=== PATIENT | female | born 1980 | race Caucasian/White ===

== ENCOUNTER 2016-07-10 06:02 | Day surgery (SDC) | payer MEDICARE ==
[~2016-07-10 06:02] MED LIST: DIPRIVAN 200 MG/20 ML IV ONE; Ketamine HCl 50 MG/ML IJ ONE
[2016-07-10] MEDS ORDERED: Lactated Ringers 1,000 ML IV SCH (06:30)
[2016-07-10 07:53] VITALS: O2SAT 99
[2016-07-10 08:19] VITALS: BP 106/70; PULSE 72
--- NOTE | 2016-07-10 10:23 | OP ---
SURGERY DATE: 07/10/16 SURGERY TIME: 0700 PREOPERATIVE DIAGNOSIS: 1. EPIGASTRIC PAIN. POSTOPERATIVE DIAGNOSIS: 1. MODERATE GASTRITIS. PROCEDURE: 1. Esophagogastroduodenoscopy with biopsy. SURGEON: Dr. Lopez. ANESTHESIA: MAC, medications given by the Anesthesia Department. BRIEF HISTORY: The patient is a 36 y/o WF presenting now for endoscopic evaluation. She was appraised of the risks of the procedure including the risk of perforation, phlebitis, untoward reaction to medication, bleeding, and missed lesions. The patient verbalized her understanding and desired to have the procedure performed. DESCRIPTION OF PROCEDURE: The patient was placed in the left lateral decubitus position. A bite block was placed and the flexible Olympus gastroscope was used to intubate the oropharynx. A view of the larynx was obtained and was normal. The scope was easily introduced in the esophagus which was normal throughout its length. The stomach was entered where normal gastric rugal folds were seen and these distended nicely with the insufflation of air. The scope was passed along the greater curvature of the stomach to the antrum where there appeared to be some erythema, but no erosions or ulcerations. The pylorus was encountered and intubated. The duodenum was inspected and found to be normal. The scope was withdrawn towards the stomach. Again, a retroflex view was obtained of the lesser curvature, fundus, and cardia regions of the stomach and these appeared normal. The scope was then redirected towards the gastric antrum and biopsies were obtained to rule out the presence of Helicobacter pylori type organisms. The scope was then removed from the patient who tolerated the procedure well and was sent back to outpatient recovery in good condition.
== END 2016-07-10 08:15 | disposition home or self-care (01) ==
LOC: SDC 06:02
PROVIDERS: ATTEND Family Medicine
PROC: 0DB68ZX Excision of Stomach, Via Natural or Artificial Opening Endoscopic, Diagnostic (ICD-10-PCS; principal; 2016-07-10)
DX: K29.70 Gastritis, unspecified, without bleeding (principal); R12 Heartburn
CPT/HCPCS: 00740; 36415; 88305; J2704

== ENCOUNTER 2016-08-02 18:18 | Observation (INO) | payer MEDICARE ==
[2016-08-02 19:04] LABS: BASOPHIL % 0.3 % (0.0-0.4); Eosinophil % 1.5 % (0.00-5.0); Granulocytes % 56.1 % (36.0-66.0); Lymphocytes % 33.9 % (24.0-44.0); Mean Cell Volume 92.9 fl (78-100); Mean Corpuscular Hemoglobin 29.7 pg (26-32); Mean Platelet Volume 10.2 fl (6-9.5); Monocytes % 8.2 % (0.0-12.0); Platelet Count 322 K/mm3 (150-450); Red Blood Count 4.24 M/mm3 (4.1-5.4); Red Cell Distribution Width 13.3 % (11.5-14.0); White Blood Count 13.4 K/mm3 (4.0-10.5)
[2016-08-02 19:28] LABS: ALBUMIN 3.5 g/dL (3.4-5.0); ANION GAP 16.4 MEQ/L (5-15); BILIRUBIN,TOTAL 0.2 mg/dL (0.2-1.0); Carbon Dioxide 23.4 mEq/L (21-32); Potassium 3.9 mEq/L (3.5-5.1); Total Protein 6.9 gm/dL (6.4-8.2)
--- NOTE | 2016-08-02 19:40 | ERPHSYRPT ---
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 daiphoreiss with no n/v or sob. nitro x3 en route. pain to lt shoulder area a 3/10 at present. skin warm and dry Physician History: The patient is a 36-year-old female brought in by ambulance from home where she complained of a sudden onset of upper left chest pain that began while she was resting at 4 PM or about 4 hours ago. She states the pain was aching. When she stood up she was dizzy and short of breath. She denies nausea or vomiting. She was sweaty. EMS gave her 3 nitroglycerin which reduced the pain from an 8 out of 10 to a 3 out of 10. She has no prior history of [place] or coronary artery disease. She states that the pain is exacerbated with deep breathing. Her past history is significant for morbid obesity, noncardiac chest pain, anxiety, fibromyalgia, GERD, and hypothyroidism. She smokes about half a pack a cigarettes a day. There is no cardiac history in the family. Timing/Duration: hour(s) (4) Activities at Onset: rest Quality: sharpness Location: shoulder Chest Pain Radiation: no radiation Severity of Pain-Max: moderate Severity of Pain-Current: mild Modifying Factors: Improves With: breathing Associated Symptoms: shortness of breath, diaphoresis, No nausea, No vomiting Prior Chest Pain/Cardiac Workup: no prior chest pain Nitro Today/Relief: 0.4 mg x 3, provided by EMS, mild relief Aspirin Treatment Today: no aspirin today Allergies/Adverse Reactions: sumatriptan [From Imitrex] Adverse Reaction (Severe, Verified 08/02/16 18:25) heart spasms sumatriptan succinate [From Imitrex] Adverse Reaction (Severe, Verified 18:25) heart spasms aspirin Adverse Reaction (Intermediate, Verified 08/02/16 18:25) bleeding Home Medications: PANTOPRAZOLE 40 mg Tablet [Protonix 40MG Tablet] 40 mg PO BID 07/26/15 [ History] Hydrocodone Bit/Acetaminophen [[place] 7.5-325 Tablet] 1 tab PO QIDPRN PRN [History] Levothyroxine Sodium 150 Mcg [Synthroid 150 Mcg] 1 tab PO DAILY 07/09/16 [ History] Hx Tetanus, Diphtheria Vaccination/Date Given: Yes Hx Influenza Vaccination/Date Given: No Hx Pneumococcal Vaccination/Date Given: No Immunizations Up to Date: Yes - Review of Systems Constitutional: No Fever, No Chills Eyes: No Symptoms Ears, Nose, & Throat: No Symptoms Respiratory: Dyspnea on Exertion (HEATON) Cardiac: Chest Pain Abdominal/Gastrointestinal: No Abdominal Pain, No Nausea, No Vomiting, No Diarrhea Genitourinary Symptoms: No Dysuria Musculoskeletal: No Back Pain, No Neck Pain Skin: No Rash Neurological: No Dizziness, No Focal Weakness, No Sensory Changes Psychological: No Symptoms Endocrine: No Symptoms Hematologic/Lymphatic: No Symptoms Immunological/Allergic: No Symptoms All Other Systems: Reviewed and Negative - Past Medical History Pertinent Past Medical History: Yes Neurological History: No Pertinent History ENT History: No Pertinent History Cardiac History: No Pertinent History Respiratory History: Bronchitis Endocrine Medical History: Hypothyroidism Musculoskeletal History: No Pertinent History GI Medical History: GERD History: No Pertinent History Psycho-Social History: Anxiety, Bipolar Female Reproductive Disorders: No Pertinent History Other Medical History: Pt notes extensive surgical history of R knee. 6 scopes, ACL repair. Notes injured R knee at age 14. - Past Surgical History Past Surgical History: Yes Neuro Surgical History: No Pertinent History Cardiac: No Pertinent History Respiratory: No Pertinent History Gastrointestinal: Cholecystectomy Genitourinary: No Pertinent History Musculoskeletal: Orthopedic Surgery Female Surgical History: Hysterectomy, Section, Other Other Surgical History: breast reduction, total knee rt, partial knee rt, 8-9 arthroscopies rt knee, ACL repairs x3 rt knee, GB - Social History Smoking Status: Current every day smoker How long have you smoked: 22 years Exposure to second hand smoke: Yes Drug Use: none Patient Lives Alone: No - Female History Hx Now: No - Nursing Vital Signs Temperature: 97.6 F Temperature Source: Oral Pulse Rate: 86 Respiratory Rate: 18 Pain Intensity: 3 - Physical Exam General Appearance: no apparent distress, alert Eye Exam: PERRL/EOMI, eyes nml inspection Ears, Nose, Throat Exam: normal ENT inspection, moist mucous membranes Neck Exam: normal inspection, non-tender, supple, full range of motion Respiratory Exam: normal breath sounds, lungs clear, No respiratory distress Cardiovascular Exam: regular rate/rhythm, normal heart sounds Gastrointestinal/Abdomen Exam: soft, No tenderness, No mass Pelvic Exam: not done Rectal Exam: not done Back Exam: normal inspection Extremity Exam: normal inspection, normal range of motion Neurologic Exam: alert, oriented x 3, cooperative, normal mood/affect, sensation nml, No motor deficits Skin Exam: normal color, warm, dry SpO2 Interpretation: normal SpO2: 98 Oxygen Delivery: Room Air - Course EKG Interpreted by Me: RATE, Sinus Rhythm, NORMAL AXIS, NORMAL INTERVALS, NORMAL QRS, NORMAL ST-T, Other (No change compared to EKG 08/20/14.) - Radiology Exams Chest X-ray Interpretation: Interpreted by me, Negative (negative AP chest) Ordered Tests: Active Orders 24 hr Category Date Time Status Care Nurse Rn STAT Care 08/02/16 18:33 Active EKG-ER Only STAT Care 08/02/16 18:33 Active IV Insertion STAT Care 08/02/16 18:33 Active Orthostatic Vital Signs STAT Care 08/02/16 19:50 Active Pulse Oximetry (ED) STAT Care 08/02/16 18:33 Active CHEST 1 VIEW (PORTABLE) Stat Exams 08/02/16 18:33 Taken CBC W DIFF Stat Lab 08/02/16 19:01 Completed CMP Stat Lab 08/02/16 19:01 Completed TROPONIN Q3H Lab 08/02/16 19:02 Completed TROPONIN Q3H Lab 08/02/16 21:45 Ordered TROPONIN Q3H Lab 08/03/16 00:45 Ordered TROPONIN Q3H Lab 08/03/16 03:45 Ordered TROPONIN Q3H Lab 08/03/16 06:45 Ordered Medication Summary Discontinued Medications Generic Name Dose Route Start Last Admin Trade Name Freq PRN Reason Stop Dose Admin Sodium Chloride 1,000 mls @ 999 mls/hr 08/02/16 19:41 08/02/16 19:54 Sodium Chloride 0.9% 1000 Ml IV 08/02/16 20:41 999 mls/hr .Q1H1M STA Administration Sodium Chloride Confirm 08/02/16 19:52 Sodium Chloride 0.9% 1000 Ml Administered 08/02/16 19:53 Dose 1,000 mls @ ud .ROUTE .STK-MED ONE Ketorolac Tromethamine 30 mg 08/02/16 19:41 08/02/16 19:54 Toradol 30 Mg Injection IV 08/02/16 19:42 30 mg STAT ONE Administration Ketorolac Tromethamine Confirm 08/02/16 19:52 Toradol 30 Mg Injection Administered 08/02/16 19:53 Dose 30 mg .ROUTE .STK-MED ONE Lab/Rad Data: Laboratory Result Diagrams 08/02/16 19:01 08/02/16 19:01 Laboratory Results 08/02/16 08/02/16 08/02/16 Range/Units 19:02 19:01 19:01 WBC 13.4 H (4.0-10.5) K/mm3 RBC 4.24 (4.1-5.4) M/mm3 Hgb 12.6 (12.0-16.0) gm/dl Hct 39.4 (35-47) % MCV 92.9 (78-100) fl MCH 29.7 (26-32) pg MCHC 32.0 (32-36) g/dl RDW 13.3 (11.5-14.0) % Plt Count 322 (150-450) K/mm3 MPV 10.2 H (6-9.5) fl Gran % 56.1 (36.0-66.0) % Lymphocytes % 33.9 (24.0-44.0) % Monocytes % 8.2 (0.0-12.0) % Eosinophils % 1.5 (0.00-5.0) % Basophils % 0.3 (0.0-0.4) % Basophils # 0.04 (0-0.4) Sodium 144 (136-145) mEq/L Potassium 3.9 (3.5-5.1) mEq/L Chloride 108 H (98-107) mEq/L Carbon Dioxide 23.4 (21-32) mEq/L Anion Gap 16.4 H (5-15) MEQ/L BUN 11 (9-20) mg/dL Creatinine 1.10 (0.55-1.30) mg/dl Estimated GFR 59 ML/MIN Glucose 123 H (70-110) MG/DL Calcium 8.2 L (8.5-10.1) mg/dL Total Bilirubin 0.2 (0.2-1.0) mg/dL AST 15 (15-37) U/L ALT 9 L (12-78) U/L Alkaline Phosphatase 110 (46-116) U/L Troponin I < 0.017 (0.000-0.056) ng/ml Serum Total Protein 6.9 (6.4-8.2) gm/dL Albumin 3.5 (3.4-5.0) g/dL - Progress Progress: unchanged Air Movement: good Progress Note: 08/02/16 22:00 After Toradol 30 mg IV and normal saline 1 liter IV, the patient is not feeling any better. She now tells me that she has episodes of fluttering and discomfort in her left chest. She is quite tearful. She states her chest pain has not gotten any better. Blood Culture(s) Obtained: No Antibiotics given: No Discussed with : John (observation per Dr Lopez) Will see patient in: hospital (observation) Counseled pt/family regarding: lab results, diagnosis, rad results - Departure Time of Disposition: 22:00 Departure Disposition: Observation Clinical Impression: Chest pain Condition: Stable Critical Care Time: No
[2016-08-02] MEDS ORDERED: Sodium Chloride 0.9% 1000 ML 1,000 ML IV STA (19:41)
[2016-08-02] MEDS ORDERED: TORAdol 30 mg Injection IV ONE (19:41)
[2016-08-02] MEDS ORDERED: Sodium Chloride 0.9% 1000 ML 1,000 ML ONE (19:52)
[2016-08-02] MEDS ORDERED: TORAdol 30 mg Injection ONE (19:52)
[2016-08-02] MEDS ORDERED: MAALOX ES 30 ML UNIT DOSE PO PRN (22:38)
[2016-08-02] MEDS ORDERED: Zofran 4 MG/2 ML VIAL IV PRN (22:38)
[2016-08-02] MEDS ORDERED: MILK OF MAGNESIA 30 ML PO PRN (22:38)
[2016-08-02] MEDS ORDERED: TYLENOL 325 MG PO PRN (22:38)
[2016-08-02] MEDS ORDERED: Senokot-S Tablet PO PRN (22:38)
[2016-08-03 07:13] VITALS: BP 105/59; PULSE 66; O2SAT 97
--- NOTE | 2016-08-03 08:32 | PCM.DCORD ---
- Discharge Discharge Date: 08/03/16 Disposition: Home, Self-Care Condition: Stable Prescriptions: New Hydrocodone Bit/Acetaminophen [[place] 7.5-325 Tablet] 1 each PO QIDPRN PRN # 30 tablet PRN Reason: Pain Continue PANTOPRAZOLE 40 mg Tablet [Protonix 40MG Tablet] 40 mg PO BID Levothyroxine Sodium 150 Mcg [Synthroid 150 Mcg] 1 tab PO DAILY Hydrocodone Bit/Acetaminophen [[place] 7.5-325 Tablet] 1 tab PO QIDPRN PRN PRN Reason: Pain Additional Instructions: You do not need to see Dr. Lopez today in the office. You have seen him today in the hospital. Please drink lots of fluids and use the volttren gel on your chest. Follow up with Dr. Lopez in the office in one week. Take your home medications as prescribed and if you are having a medical emergency please go to the er. Follow up with: GUILLE LOPEZ [Primary Care Provider] -
--- NOTE | 2016-08-03 08:32 | XRAY ---
Indication: Chest pain and flutter. Comparison: August 20, 2014. Portable chest demonstrates stable left upper lung calcified granuloma. Remaining heart, lungs, and bony thorax normal.
[2016-08-03] MEDS ORDERED: Ecotrin 325 MG PO SCH (10:00)
[2016-08-03] MEDS ORDERED: PNEUMOVAX 23 IM ONE (10:00)
[2016-08-03] MEDS ORDERED: FLUZONE QUAD 2016-2017 SYRINGE 36MO-64YO IM ONE (10:00)
--- NOTE | 2016-08-03 12:56 | SSS ---
DISCHARGE DIAGNOSIS: CHEST WALL PAIN. HISTORY OF PRESENT ILLNESS: The patient is a 36 year-old white female who presented to the emergency room with complaints of sudden onset of chest pain. She reports the pain was worse with inspiration in particular the left sternal border. She was seen in the emergency room and given Nitro with some relief. The patient continued to have pain however and was crying and was felt the need to be admitted to the hospital to rule out myocardial infarction. PAST MEDICAL/SURGICAL HISTORY: Morbid obesity, fibromyalgia, anxiety, depression, chronic pain syndrome, hypothyroidism. HOME MEDICATIONS: Pantoprazole 40 mg a day, [place] 7.5/325 mg four times a day for pain, Synthroid 150 mcg daily. ALLERGIES: IMITREX. SOCIAL HISTORY: The patient is a smoker. PHYSICAL EXAMINATION: Revealed a morbidly obese white female in no distress. Vital signs on admission showed temperature 97.6F oral, pulse 86, and respiratory rate 18. The patient's blood pressure is noted to be 124/72. HEENT: Normocephalic, atraumatic. Pupils equal round reactive to light. Extraocular movements intact. Oropharynx is pink and moist. NECK: Supple without lymphadenopathy, thyromegaly or JVD. CHEST: Clear to auscultation with good air movement bilaterally. The chest is exquisitely tender to palpation in the second and third rib area at its attachment to the sternum. HEART: Regular rate and rhythm without murmurs, rubs or gallops. ABDOMEN: Soft, nontender, nondistended without hepatosplenomegaly or masses. EXTREMITIES: Without clubbing, cyanosis or edema. NEUROLOGIC: The patient is alert and oriented x3. LAB DATA AND TESTS: Troponins measured several times were all less than 0.017. Her white blood cell count was slightly elevated at 13,400, hemoglobin 12.6, PLT count 322,000. There appeared to be no left shift. The metabolic panel showed nonfasting glucose of 123, BUN 11, creatinine 1.10. Electrolytes were normal. Liver enzymes were normal. The patient had EKG which was essentially normal as well. ASSESSMENT: A patient with chest wall pain having ruled out for myocardial infarction. The patient was sent home with instructions to follow up in the office in one week. She was given a prescription for [place] as requested at 7.5/325 mg #30. She also has Voltaren gel at home to use which she has been using in the occipital area for headaches. We will ask her to also use now in the left sternal border as well for pain control.
== END 2016-08-03 10:45 | disposition home or self-care (01) ==
LOC: ED 18:18 → MED SURG 22:24
PROVIDERS: ADMIT Family Medicine; ATTEND Family Medicine
DX: R07.89 Other chest pain (principal); E66.01 Morbid (severe) obesity due to excess calories; M79.7 Fibromyalgia; F41.8 Other specified anxiety disorders; G89.4 Chronic pain syndrome; E03.9 Hypothyroidism, unspecified; K21.9 Gastro-esophageal reflux disease without esophagitis; Z79.899 Other long term (current) drug therapy; Z72.0 Tobacco use; Z23 Encounter for immunization
CPT/HCPCS: 36000; 36415; 71010; 80053; 80061; 83721; 84484; 85025; 90686; 90732; 93005; 93041; 93268; 94760; 96360; 96374; 99285; G0008; G0009; G0378; J1885; A9270-GY

== ENCOUNTER 2016-12-27 18:10 | Observation (INO) | payer MEDICARE ==
[2016-12-27] MEDS ORDERED: Zofran 4 MG/2 ML VIAL IV ONE (18:33)
[2016-12-27] MEDS ORDERED: Nitrostat 0.4 MG (ED) SL ONE ×2 (18:33→18:47)
--- NOTE | 2016-12-27 18:44 | ERPHSYRPT ---
- History of Present Illness Time Seen by Provider: 12/27/16 18:25 Historian: patient Exam Limitations: clinical condition Patient Subjective Stated Complaint: PT REPORTS CHEST PAIN BEGINNING HERO 1 HR AGO-DENIES SOB BUT REPORTS DIAPHORESIS-REPORTS BILATERAL LEG SWELLING WORSENING DURING THE WEEK Triage Nursing Assessment: PT PINK WARM ET [id number] EASY ET NONLABORED AT THIS TIME-SPEAKING IN COMPLETE SENTENCES WITH EASE Physician History: PATIENT WITH A HISTORY OR ATRIAL FIBRILLATION, HYPERTENSION, CORONARY ARTERY DISEASE COMPLAINS OF ACUTE ONSET SUBSTERNAL CHEST PAIN 1 HOUR PRIOR TO ARRIVAL ASSOCIATED WITH DIAPHORESIS, DENIES RADIATION OF PAIN TO NECK, JAW OR BACK OR PALPITATIONS. STATES PAIN SCALE 5/10. PATIENT HAS A CARDIAC CATHERIZATION SEPTEMBER 2015. Timing/Duration: today Activities at Onset: none Quality: pressure Location: substernal Chest Pain Radiation: no radiation Severity of Pain-Max: moderate Severity of Pain-Current: moderate Modifying Factors: Improves With: nothing Associated Symptoms: nausea, diaphoresis Prior Chest Pain/Cardiac Workup: cardiac cath Nitro Today/Relief: 0.4 mg x 1, provided by ED Aspirin Treatment Today: no aspirin today Allergies/Adverse Reactions: sumatriptan [From Imitrex] Allergy (Severe, Verified 12/27/16 18:30) heart spasms sumatriptan succinate [From Imitrex] Allergy (Severe, Verified 12/27/16 18:30) heart spasms aspirin Allergy (Intermediate, Verified 12/27/16 18:30) bleeding Home Medications: Levothyroxine Sodium 150 Mcg [Synthroid 150 Mcg] 1 tab PO DAILY 07/09/16 [ History] Apixaban [Eliquis] 5 mg PO BID 12/08/16 [History] Furosemide 20 mg [Lasix 20 mg] 20 mg PO DAILY 12/08/16 [History] Amlodipine Besylate [Norvasc] 2.5 mg PO DAILY 12/27/16 [History] Clonazepam 0.5 mg [Klonopin 0.5 MG] 0.5 mg PO BID PRN 12/27/16 [History] Gabapentin [Neurontin] 300 mg PO HS 12/27/16 [History] Omeprazole 20 MG [Prilosec 20 mg] 20 mg PO DAILY 12/27/16 [History] Hx Tetanus, Diphtheria Vaccination/Date Given: Yes Hx Influenza Vaccination/Date Given: No Hx Pneumococcal Vaccination/Date Given: No Immunizations Up to Date: Yes - Review of Systems Constitutional: No Fever, No Chills Eyes: No Symptoms Ears, Nose, & Throat: No Symptoms Respiratory: No Symptoms, No Cough, No Dyspnea Cardiac: Chest Pain, Edema, Other (DIAPHORESIS), No Syncope Abdominal/Gastrointestinal: Nausea, No Abdominal Pain, No Vomiting, No Diarrhea Genitourinary Symptoms: No Symptoms, No Dysuria Musculoskeletal: No Symptoms, No Back Pain, No Neck Pain Skin: No Rash Neurological: No Dizziness, No Focal Weakness, No Sensory Changes Psychological: No Symptoms Endocrine: No Symptoms All Other Systems: Reviewed and Negative - Past Medical History Pertinent Past Medical History: Yes Neurological History: Migraines ENT History: No Pertinent History Cardiac History: Arrhythmia, Hypertension Respiratory History: Bronchitis Endocrine Medical History: Diabetes Type II, Hypothyroidism Musculoskeletal History: Arthritis, Fibromyalgia GI Medical History: GERD History: No Pertinent History Psycho-Social History: Anxiety, Bipolar Female Reproductive Disorders: No Pertinent History Other Medical History: Pt notes extensive surgical history of R knee. 6 scopes, ACL repair. Notes injured R knee at age 14. - Past Surgical History Past Surgical History: Yes Neuro Surgical History: No Pertinent History Cardiac: No Pertinent History Respiratory: No Pertinent History Gastrointestinal: Cholecystectomy Genitourinary: No Pertinent History Musculoskeletal: Orthopedic Surgery Female Surgical History: Hysterectomy, Section, Other Other Surgical History: breast reduction, total knee rt, partial knee rt, 8-9 arthroscopies rt knee, ACL repairs x3 rt knee, GB, thyroidectomy - Social History Smoking Status: Current every day smoker How long have you smoked: 22 years Exposure to second hand smoke: Yes Drug Use: none Patient Lives Alone: No - Female History Hx Now: No - Nursing Vital Signs Nursing Vital Signs: Initial Vital Signs Temperature 97.8 F 12/27/16 18:15 Pulse Rate 84 12/27/16 18:15 Respiratory Rate 18 12/27/16 18:15 Blood Pressure 132/63 12/27/16 18:15 O2 Sat by Pulse Oximetry 96 12/27/16 18:15 Pain Scale Pain Intensity 1 - Physical Exam General Appearance: no apparent distress, alert Eye Exam: PERRL/EOMI, eyes nml inspection Ears, Nose, Throat Exam: normal ENT inspection, moist mucous membranes Neck Exam: normal inspection, non-tender, supple, full range of motion Respiratory Exam: normal breath sounds, lungs clear, No respiratory distress Cardiovascular Exam: regular rate/rhythm, normal heart sounds Gastrointestinal/Abdomen Exam: soft, normal bowel sounds (OBESE), No tenderness , No mass Back Exam: normal inspection, No CVA tenderness, No vertebral tenderness Extremity Exam: normal inspection, normal range of motion, pedal edema (+1 PITTING EDEMA) Neurologic Exam: alert, oriented x 3, cooperative, normal mood/affect, sensation nml, No motor deficits Skin Exam: normal color, warm, dry SpO2 Interpretation: normal SpO2: 96 Oxygen Delivery: Room Air - Course EKG Interpreted by Me: RATE, Sinus Rhythm (RATEE 85), NORMAL AXIS, Non-specific ST Changes - Radiology Exams Chest X-ray Interpretation: Interpreted by me, Negative Ordered Tests: Active Orders 24 hr Category Date Time Status Bedrest with BRP/BSC ROUTINE Activity 12/27/16 20:25 Ordered Admission/Status Order ROUTINE Care 12/27/16 20:25 Ordered Call Admit Doctor for Orders ROUTINE Care 12/27/16 20:25 Ordered Clean Catch Urine Specimen STAT Care 12/27/16 18:38 Active Code Status Order ROUTINE Care 12/27/16 20:25 Ordered EKG-ER Only STAT Care 12/27/16 18:33 Active IV Care Q6H Care 12/27/16 20:25 Ordered Implement Chest Pain Pathway ROUTINE Care 12/27/16 20:25 Ordered Oxygen-ED Only NASAL CANNULA 2 lpm Care 12/27/16 18:33 Active Rene Garcia ROUTINE Care 12/27/16 20:25 Ordered Telemetry ROUTINE Care 12/27/16 20:25 Ordered Vital Signs Q4H Care 12/27/16 20:25 Ordered Weight,Daily 0600 Care 12/27/16 20:25 Ordered Cardiac Diet Diet 12/27/16 Breakfast Ordered CHEST 2 VIEWS (PA AND LAT) Stat Exams 12/27/16 18:35 Completed CBC W DIFF Stat Lab 12/27/16 18:30 Completed CMP Stat Lab 12/27/16 18:30 Completed HCG,QUALITATIVE URINE Stat Lab 12/27/16 19:00 Completed LIPID PROFILE AM.LAB Lab 12/28/16 04:00 Ordered NT PRO BNP Stat Lab 12/27/16 18:30 Completed PROTIME WITH INR Stat Lab 12/27/16 18:30 Completed TROPONIN Q3H Lab 12/27/16 18:30 Completed TROPONIN Q3H Lab 12/27/16 21:45 Ordered TROPONIN Q3H Lab 12/28/16 00:45 Ordered TROPONIN Q3H Lab 12/28/16 03:45 Ordered TROPONIN Q3H Lab 12/28/16 06:45 Ordered UA Stat Lab 12/27/16 19:00 Completed EKG Q8HX2,QAMX3,PRN RT 12/27/16 20:25 Ordered Pulse Oximetry .continuos RT 12/27/16 20:25 Ordered Transfer Order Routine Transfer 12/27/16 Ordered Medication Summary Generic Name Dose Route Start Last Admin Trade Name Freq PRN Reason Stop Dose Admin Acetaminophen 650 mg 12/27/16 20:25 Tylenol 325 Mg PO 01/26/17 20:24 Q4H PRN PRN PAIN AND/OR FEVER Amlodipine Besylate 2.5 mg 12/27/16 21:00 Norvasc 5 Mg PO 01/26/17 20:59 QAM KEVIN Apixaban 5 mg 12/27/16 22:00 Eliquis PO 01/26/17 21:59 BID KEVIN Aspirin 325 mg 12/28/16 10:00 Ecotrin 325 Mg PO 01/27/17 09:59 DAILY KEVIN Clonazepam 0.5 mg 12/27/16 20:30 Klonopin 0.5 Mg PO 01/26/17 20:29 BID KEVIN Famotidine 20 mg 12/27/16 22:00 Pepcid 20 Mg PO 01/26/17 21:59 BID KEVIN Furosemide 40 mg 12/27/16 20:30 Lasix 40 Mg PO 01/26/17 20:29 DAILY KEVIN Sodium Chloride 1,000 mls @ 50 mls/hr 12/27/16 18:45 12/27/16 18:48 Sodium Chloride 0.9% 1000 Ml IV 01/26/17 18:44 50 mls/hr .Q20H KEVIN Administration Discontinued Medications Generic Name Dose Route Start Last Admin Trade Name Freq PRN Reason Stop Dose Admin Morphine Sulfate 4 mg 12/27/16 20:17 12/27/16 20:23 Morphine Sulfate 4 Mg Inj IV 12/27/16 20:18 4 mg STAT ONE Administration Morphine Sulfate Confirm 12/27/16 20:22 Morphine Sulfate 4 Mg Inj Administered 12/27/16 20:23 Dose 4 mg .ROUTE .STK-MED ONE Nitroglycerin 0.4 mg 12/27/16 18:33 12/27/16 18:47 Nitrostat 0.4 Mg (Ed) SL 12/27/16 18:34 0.4 mg STAT ONE Administration Nitroglycerin Confirm 12/27/16 18:47 Nitrostat 0.4 Mg (Ed) Administered 12/27/16 18:48 Dose 0.4 mg SL .STK-MED ONE Nitroglycerin 1 gm 12/27/16 19:46 12/27/16 19:57 Nitro-Bid 2% Ud Packets TOP 12/27/16 19:47 1 gm STAT ONE Administration Nitroglycerin Confirm 12/27/16 19:57 Nitro-Bid 2% Ud Packets Administered 12/27/16 19:58 Dose 1 gm .ROUTE .STK-MED ONE Ondansetron HCl 4 mg 12/27/16 18:33 12/27/16 18:48 Zofran 4 Mg/2 Ml Vial IV 12/27/16 18:34 4 mg STAT ONE Administration Ondansetron HCl Confirm 12/27/16 18:47 Zofran 4 Mg/2 Ml Vial Administered 12/27/16 18:48 Dose 4 mg .ROUTE .STK-MED ONE Lab/Rad Data: Laboratory Result Diagrams 12/27/16 18:30 12/27/16 18:30 Laboratory Results 12/27/16 12/27/16 12/27/16 Range/Units 19:00 19:00 18:30 WBC (4.0-10.5) K/mm3 RBC (4.1-5.4) M/mm3 Hgb (12.0-16.0) gm/dl Hct (35-47) % MCV (78-100) fl MCH (26-32) pg MCHC (32-36) g/dl RDW (11.5-14.0) % Plt Count (150-450) K/mm3 MPV (6-9.5) fl Gran % (36.0-66.0) % Lymphocytes % (24.0-44.0) % Monocytes % (0.0-12.0) % Eosinophils % (0.00-5.0) % Basophils % (0.0-0.4) % Basophils # (0-0.4) INR (0.8-3.0) Sodium (136-145) mEq/L Potassium (3.5-5.1) mEq/L Chloride (98-107) mEq/L Carbon Dioxide (21-32) mEq/L Anion Gap (5-15) MEQ/L BUN (9-20) mg/dL Creatinine (0.55-1.30) mg/dl Estimated GFR ML/MIN Glucose (70-110) MG/DL Calcium (8.5-10.1) mg/dL Total Bilirubin (0.2-1.0) mg/dL AST (15-37) U/L ALT (12-78) U/L Alkaline Phosphatase (46-116) U/L Troponin I < 0.017 (0.000-0.056) ng/ml NT-Pro-B Natriuret Pep (0-125) pg/ml Serum Total Protein (6.4-8.2) gm/dL Albumin (3.4-5.0) g/dL Ur Collection Type CLEAN CATCH Urine Color YELLOW (YELLOW) Urine Appearance CLEAR (CLEAR) Urine pH 5.0 (5-6) Ur Specific [place] 1.010 (1.005-1.025) Urine Protein NEGATIVE (Negative) Urine Ketones NEGATIVE (NEGATIVE) Urine Blood NEGATIVE (0-5) Jose/ul Urine Nitrite NEGATIVE (NEGATIVE) Urine Bilirubin NEGATIVE (NEGATIVE) Urine Urobilinogen NORMAL (0-1) mg/dL Ur Leukocyte Esterase NEGATIVE (NEGATIVE) Urine Glucose NEGATIVE (NEGATIVE) mg/dL Urine HCG, Qual NEGATIVE (Negative) Specimen Received 12/27/16:1900 12/27/16 12/27/16 12/27/16 Range/Units 18:30 18:30 18:30 WBC 16.6 H (4.0-10.5) K/mm3 RBC 4.32 (4.1-5.4) M/mm3 Hgb 12.7 (12.0-16.0) gm/dl Hct 39.9 (35-47) % MCV 92.4 (78-100) fl MCH 29.4 (26-32) pg MCHC 31.8 L (32-36) g/dl RDW 14.1 H (11.5-14.0) % Plt Count 373 (150-450) K/mm3 MPV 10.6 H (6-9.5) fl Gran % 68.0 H (36.0-66.0) % Lymphocytes % 24.7 (24.0-44.0) % Monocytes % 5.6 (0.0-12.0) % Eosinophils % 1.4 (0.00-5.0) % Basophils % 0.3 (0.0-0.4) % Basophils # 0.05 (0-0.4) INR 1.07 (0.8-3.0) Sodium 141 (136-145) mEq/L Potassium 3.5 (3.5-5.1) mEq/L Chloride 104 (98-107) mEq/L Carbon Dioxide 26.3 (21-32) mEq/L Anion Gap 14.1 (5-15) MEQ/L BUN 12 (9-20) mg/dL Creatinine 1.08 (0.55-1.30) mg/dl Estimated GFR > 60 ML/MIN Glucose 137 H (70-110) MG/DL Calcium 9.2 (8.5-10.1) mg/dL Total Bilirubin 0.20 (0.2-1.0) mg/dL AST 17 (15-37) U/L ALT 21 (12-78) U/L Alkaline Phosphatase 120 H (46-116) U/L Troponin I (0.000-0.056) ng/ml NT-Pro-B Natriuret Pep 94 (0-125) pg/ml Serum Total Protein 7.6 (6.4-8.2) gm/dL Albumin 3.5 (3.4-5.0) g/dL Ur Collection Type Urine Color (YELLOW) Urine Appearance (CLEAR) Urine pH (5-6) Ur Specific [place] (1.005-1.025) Urine Protein (Negative) Urine Ketones (NEGATIVE) Urine Blood (0-5) Jose/ul Urine Nitrite (NEGATIVE) Urine Bilirubin (NEGATIVE) Urine Urobilinogen (0-1) mg/dL Ur Leukocyte Esterase (NEGATIVE) Urine Glucose (NEGATIVE) mg/dL Urine HCG, Qual (Negative) Specimen Received - Progress Progress: improved Progress Note: 12/27/16 20:21 PATIENT PAIN IMPROVED NTG 0.4MG SL X2, NITROPASTE 1" ACW, ZOFRAN 4MG, MORPHINE 4MG IV Discussed with .: Davian (NOTIFIED OF ADMISSION), Other (CONSULTED DATABASE TECHNICIAN DR ALCARAZ AT 1945, FOR ADMISSION TO [place], DR PILLAI NOTIFIED OF ADMISSION) - Departure Time of Disposition: 20:30 Departure Disposition: Observation Clinical Impression: ACUTE CHEST PAIN Condition: Stable Critical Care Time: No Referrals: GUILLE WEBB [Primary Care Provider] -
[2016-12-27] MEDS ORDERED: Sodium Chloride 0.9% 1000 ML 1,000 ML IV SCH (18:45)
[2016-12-27] MEDS ORDERED: Zofran 4 MG/2 ML VIAL ONE (18:47)
[2016-12-27 18:52] LABS: BASOPHIL % 0.3 % (0.0-0.4); Eosinophil % 1.4 % (0.00-5.0); Lymphocytes % 24.7 % (24.0-44.0); Mean Cell Volume 92.4 fl (78-100); Mean Corpuscular Hemoglobin 29.4 pg (26-32); Mean Platelet Volume 10.6 fl (6-9.5); Monocytes % 5.6 % (0.0-12.0); Platelet Count 373 K/mm3 (150-450); Red Blood Count 4.32 M/mm3 (4.1-5.4); Red Cell Distribution Width 14.1 % (11.5-14.0); White Blood Count 16.6 K/mm3 (4.0-10.5)
--- NOTE | 2016-12-27 19:14 | XRAY ---
Indication: Dyspnea. Comparison: August 02, 2016. PA/lateral chest again demonstrates normal heart, lungs, and bony thorax with incidental calcified granulomas.
[2016-12-27 19:21] LABS: Bilirubin NEGATIVE (NEGATIVE); Blood NEGATIVE Ery/ul (0-5); COMPLETE URINE MICROSCOPIC? NO; Collection Type CLEAN CATCH; Glucose NEGATIVE (NEGATIVE); Leukocyte Esterase NEGATIVE (NEGATIVE)
[2016-12-27 19:21] LABS: INR 1.07 (0.8-3.0); PROTIME 12.1 SECONDS (9.95-12.35)
[2016-12-27 19:35] LABS: ALBUMIN 3.5 g/dL (3.4-5.0); ALKALINE PHOSPHATASE 120 U/L (46-116); ANION GAP 14.1 MEQ/L (5-15); BLOOD UREA NITROGEN 12 mg/dL (9-20); CHLORIDE 104 mEq/L (98-107); Carbon Dioxide 26.3 mEq/L (21-32); Glucose 137 MG/DL (70-110); Potassium 3.5 mEq/L (3.5-5.1); SGOT/AST 17 U/L (15-37); SGPT/ALT 21 U/L (12-78); SODIUM 141 mEq/L (136-145); Total Protein 7.6 gm/dL (6.4-8.2)
[2016-12-27] MEDS ORDERED: NITRO-BID 2% UD PACKETS TOP ONE (19:46)
[2016-12-27] MEDS ORDERED: NITRO-BID 2% UD PACKETS ONE (19:57)
[2016-12-27] MEDS ORDERED: MORPHINE SULFATE 4 MG INJ IV ONE (20:17)
[2016-12-27] MEDS ORDERED: MORPHINE SULFATE 4 MG INJ ONE (20:22)
[2016-12-27] MEDS ORDERED: TYLENOL 325 MG PO PRN (20:25)
[2016-12-27] MEDS ORDERED: MORPHINE SULFATE 2 MG INJ IV PRN (20:25)
[2016-12-27] MEDS ORDERED: MAALOX ES 30 ML UNIT DOSE PO PRN (20:25)
[2016-12-27] MEDS ORDERED: Zofran 4 MG/2 ML VIAL IV PRN (20:25)
[2016-12-27] MEDS ORDERED: Senokot-S Tablet PO PRN (20:25)
[2016-12-27] MEDS ORDERED: Lasix 40 MG PO SCH (20:30)
[2016-12-27] MEDS ORDERED: Sodium Chloride 0.9% 500 ML 500 ML IV SCH (20:30)
[2016-12-27] MEDS ORDERED: NORCO 7.5/325 MG TAB PO PRN (22:45)
[2016-12-27] MEDS: NORVASC 5 MG PO SCH (22:47)
[2016-12-27] MEDS: ELIQUIS PO SCH (22:54)
[2016-12-27] MEDS: Pepcid 20 MG PO SCH (22:54)
[2016-12-27] MEDS: Klonopin 0.5 MG PO SCH ×2 (22:54→23:04)
[2016-12-27] MEDS ORDERED: NEURONTIN 300 MG PO ONE (23:00)
[2016-12-28] MEDS ORDERED: SUBLIMAZE 100 MCG/2 ML ONE (04:08)
[2016-12-28] MEDS ORDERED: SUBLIMAZE 100 MCG/2 ML IV ONE (04:12)
[2016-12-28 07:54] VITALS: BP 104/53; PULSE 74; O2SAT 93
--- NOTE | 2016-12-28 08:49 | HP ---
CHIEF COMPLAINT: Chest pain. HISTORY OF PRESENT ILLNESS: The patient is a 36 year-old white female who reports that approximately 1600 hours in the afternoon she began having some chest discomfort. She became concerned as the pain was intermittent. She presented herself to the emergency room. She does have a history of atrial fibrillation. She sees Dr. Bone for her cardiac issues. She has not had any coronary artery occlusion problems she reports. PAST MEDICAL/SURGICAL HISTORY: Her history is otherwise significant for anxiety, depression and childbirth. She has hypothyroidism, gastroesophageal reflux disease and hypertension. HOME MEDICATIONS: Amlodipine 2.5 mg daily, Eliquis 5 mg b.i.d., Klonopin 0.5 mg b.i.d. PRN anxiety, Lasix 20 mg a day, Neurontin 300 mg at night for sleep, [place] 7.5/325 every four hours PRN pain, levothyroxine 150 mcg daily, omeprazole 20 mg a day. ALLERGIES: SUMATRIPTAN, ASPIRIN. REVIEW OF SYSTEMS: The patient did complain of some left posterior calf area tenderness in the left leg. PHYSICAL EXAMINATION: Revealed an obese, white female currently in no obvious distress. Her vital signs showed temperature 97.8F, blood pressure 132/86, heart rate 76 and regular presently. HEENT: Normocephalic, atraumatic. Pupils equal round reactive to light. Extraocular movements intact. Oropharynx is pink and moist. NECK: Supple without lymphadenopathy, thyromegaly or JVD. CHEST: Clear to auscultation with good air movement bilaterally. It is tender to palpation over the left sternal border with pressure applied. HEART: No murmurs, rubs or gallops heard. She is currently in what appears to be a sinus rhythm. ABDOMEN: Soft, nontender, nondistended without hepatosplenomegaly or masses. EXTREMITIES: Without clubbing, cyanosis or edema. NEUROLOGIC: The patient is alert and oriented x3. LAB DATA AND TESTS: Laboratory studies from the emergency room revealed troponin to be less than 0.017. D-dimer was negative. We are pending a venous Doppler of the left lower extremity to rule out deep venous thrombosis. Her lipid panel was good with LDL cholesterol of 89 and HDL of 37. International normalized ratio 1.07. Metabolic panel showed a nonfasting glucose of 137, BUN 12, creatinine 1.08. Liver enzymes and electrolytes were normal. ProBNP level was 94. UA was normal. ASSESSMENT: A patient with chest pain likely to be due to chest wall inflammation with the pain at the left sternal border. She has no history of coronary artery disease to my knowledge. We will rule out for deep venous thrombosis of the left lower extremity. If this is negative, she will be discharged home on her usual medications. She reports she has an appointment to see a diesel powerplant mechanic later this afternoon.
[2016-12-28] MEDS ORDERED: Klonopin 0.5 MG PO PRN (09:26)
--- NOTE | 2016-12-28 09:28 | XRAY ---
Indication: Left leg pain and swelling. Two-dimensional sonogram and color Doppler imaging of the major venous vessels of the left leg was performed. Comparison: July 21, 2012. Again no thrombus seen in the examined deep venous vessels of the left leg including greater saphenous vein. Veins demonstrate normal compressibility. Venous waveforms are normal with and without augmentation. Impression: Left leg again negative for DVT.
[2016-12-28] MEDS ORDERED: Protonix 40MG Tablet PO SCH (10:00)
[2016-12-28] MEDS ORDERED: SYNTHROID 150 MCG PO SCH (10:00)
[2016-12-28] MEDS ORDERED: NON-FORMULARY ITEM (Omeprazole 20 Mg [Prilosec 20 Mg] 20 MG) PO SCH (10:00)
[2016-12-28] MEDS ORDERED: LASIX 20 MG PO SCH (10:00)
[2016-12-28] MEDS ORDERED: Ecotrin 325 MG PO SCH (10:00)
[2016-12-28] MEDS: NORVASC 5 MG PO SCH (10:09)
[2016-12-28] MEDS: ELIQUIS PO SCH (10:10)
[2016-12-28] MEDS: Pepcid 20 MG PO SCH (10:11)
[2016-12-28] MEDS ORDERED: NEURONTIN 300 MG PO SCH (22:00)
== END 2016-12-28 10:25 | disposition home or self-care (01) ==
LOC: ED 18:10 → MED SURG 20:40
PROVIDERS: ADMIT Family Medicine; ATTEND Family Medicine
DX: R07.89 Other chest pain (principal); I48.91 Unspecified atrial fibrillation; Z79.01 Long term (current) use of anticoagulants; F41.8 Other specified anxiety disorders; E03.9 Hypothyroidism, unspecified; M79.605 Pain in left leg; M79.89 Other specified soft tissue disorders; K21.9 Gastro-esophageal reflux disease without esophagitis; I10 Essential (primary) hypertension; Z79.899 Other long term (current) drug therapy
CPT/HCPCS: 36000; 36415; 71020; 80053; 80061; 81002; 83721; 83880; 84484; 84703; 85025; 85379; 85610; 93005; 93041; 93268; 93971; 94660; 94760; 96360; 96361; 96374; 96375; 99285; G0378; J2270; J2405; J3010; A9270-GY

== ENCOUNTER 2017-04-05 17:05 | Emergency (ER) | payer MEDICARE ==
[2017-04-05] MEDS ORDERED: Sodium Chloride 0.9% 1000 ML 1,000 ML IV STA ×2 (17:29→19:20)
[2017-04-05] MEDS ORDERED: Sodium Chloride 0.9% 1000 ML 1,000 ML ONE ×2 (17:35→19:25)
--- NOTE | 2017-04-05 17:37 | ERPHSYRPT ---
- History of Present Illness Source: patient Exam Limitations: no limitations Patient Subjective Stated Complaint: PT STATES SHE WAS STANDING AT THE KITCHEN COUNTER APPROX 1620 TALKING WITH HER DAUGHTER WHEN SHE STARTED TO FEEL DIZZY AND SWEAT. REPORTS SHE FELL BACK STRIKING HER HEAD ON THE WALL. REPORTS WHEN SHE CAME AROUND SHE WAS ON THE FLOOR AND HER HEAD WAS HURTING. REPORT OF KNEE SURGERY APPROX 4 WKS AGO. STATES SHE JUST STARTED HER SECOND ROUND OF AUGMENTIN TODAY FOR AN INFECTION TO THE KNEE. REPORTS HAVING DIARRHEA ALL DAY TODAY WELL CHILLS. Triage Nursing Assessment: PT IS AOX3, PUPILS PERRL, RESPS ARE EASY AND NON LABORED, LUNG SOUNDS CLEAR THROUGHOUT ALL HADLEY, RADIAL PULSES ARE STRONG AND EQUAL, ABD IS SOFT AND NON TENDER, BOWEL SOUNDS ARE PRESENT AND NORMOACTIVEX4. SKIN IS PALE WARM AND DRY. ROM IS NORMAL, SENSATION INTACT TO UPPER AND LOWER EXTREMITIES. Timing/Duration: today (just prior to arrival) Severity: moderate Modifying Factors: Worsens With: eating, immobilization, medication, movement, rest, acetaminophen, ibuprofen, nothing Associated Symptoms: diaphoresis, headaches, syncope, seizure (questionable seizure), No nausea, No vomiting, No abdominal pain, No shortness of breath, No heartburn, No cough, No chest pain, No fever, No loss of appetite, No malaise, No rash, No weakness Hx Tetanus, Diphtheria Vaccination/Date Given: Yes Hx Influenza Vaccination/Date Given: Yes Hx Pneumococcal Vaccination/Date Given: Yes Immunizations Up to Date: Yes <SAHARA JONES - Last Filed: 04/05/17 19:27> <AYAD MCNULTY - Last Filed: 04/05/17 22:19> - History of Present Illness Time Seen by Provider: 04/05/17 17:26 Physician History: Is a 37-year-old morbidly obese white female with history of migraines, hypothyroidism, atrial fibrillation, hypothyroidism who has had a recent knee replacement. Patient states that she was standing talking to her daughter when she suddenly began to feel dizzy and sweaty she states she felt back struck her head lost consciousness she has pain in the posterior head. She has no chest pain no shortness of breath. Patient was observed to have possible seizure activity by her daughter. Past medical history includes migraines, hypothyroidism, thyroid cancer, sleep apnea, angina, arrhythmia, atrial fibrillation, high blood pressure, irritable bowel, endometriosis, arthritis, fibromyalgia, anxiety, depression. Past surgical history includes a right knee multiple surgeries and the right knee replacement, cardiac catheter, cholecystectomy, hysterectomy, joint replacement, orthopedic surgery, breast reduction, right total knee, multiple arthroscopic surgeries on the right knee, anterior cruciate ligament 3 on the right knee, gallbladder, cholecystectomy, left total knee arthroplasty. (SAHARA JONES) Allergies/Adverse Reactions: sumatriptan [From Imitrex] Allergy (Severe, Verified 04/05/17 17:17) heart spasms sumatriptan succinate [From Imitrex] Allergy (Severe, Verified 04/05/17 17:17) heart spasms aspirin Allergy (Intermediate, Verified 04/05/17 17:17) bleeding Home Medications: Levothyroxine Sodium 150 Mcg [Synthroid 150 Mcg] 150 mcg PO DAILY 07/09/16 [History] Apixaban [Eliquis] 5 mg PO BID 12/08/16 [History] Amlodipine Besylate [Norvasc] 2.5 mg PO DAILY 12/27/16 [History] Gabapentin [Neurontin] 300 mg PO HS 12/27/16 [History] Metoprolol Tartrate 25 mg [Lopressor 25MG Tab] 25 mg PO BID 12/27/16 [ History] Omeprazole 20 MG [Prilosec 20 mg] 20 mg PO DAILY 12/27/16 [History] Lidocaine 1 each TP DAILY 04/05/17 [History] - Review of Systems Constitutional: No Fever, No Chills Eyes: No Symptoms, No Eye Pain, No Photophobia Ears, Nose, & Throat: No Symptoms, No Ear Pain, No Ear Discharge, No Hearing Changes, No Tinnitus, No Nose Pain, No Nose Congestion, No Nose Discharge, No Sinus Drainage, No Epistaxis, No Mouth Pain, No Mouth Swelling, No Loose Teeth, No Throat Pain, No Throat Swelling, No Hoarse, No Painful Swallowing, No Snoring , No Stridor Respiratory: No Cough, No Dyspnea Cardiac: No Chest Pain, No Edema, No Syncope Abdominal/Gastrointestinal: No Abdominal Pain, No Nausea, No Vomiting, No Diarrhea Genitourinary Symptoms: No Dysuria Musculoskeletal: Other (patient with right total knee arthroplasty March 08) Skin: No Rash Neurological: Dizziness, Headache (pain posterior head), Seizure (questionable seizure), Other (syncope), No Focal Weakness, No Gait Changes, No Irritability, No Lethargy, No Paralysis, No Parasthesia, No Sensory Changes, No Speech Changes , No Tics, No Tremors, No Vertigo Psychological: No Symptoms Endocrine: No Symptoms All Other Systems: Reviewed and Negative <SAHARA JONES - Last Filed: 04/05/17 19:27> - Past Medical History Pertinent Past Medical History: Yes Neurological History: Migraines ENT History: No Pertinent History Cardiac History: Angina, Arrhythmia, Hypertension Respiratory History: Sleep Apnea Endocrine Medical History: Hypothyroidism, Thyroid Cancer Musculoskeletal History: Arthritis, Fibromyalgia GI Medical History: Irritable Bowel History: No Pertinent History Psycho-Social History: Anxiety, Depression Female Reproductive Disorders: Endometriosis Other Medical History: Pt notes extensive surgical history of R knee. 6 scopes, ACL repair. Notes injured R knee at age 14. - Past Surgical History Past Surgical History: Yes Neuro Surgical History: No Pertinent History Cardiac: Cardiac Catheterization Respiratory: No Pertinent History Gastrointestinal: Cholecystectomy Genitourinary: No Pertinent History Musculoskeletal: Joint Replacement, Orthopedic Surgery Female Surgical History: Hysterectomy Other Surgical History: breast reduction, total knee rt, partial knee rt, 8-9 arthroscopies rt knee, ACL repairs x3 rt knee, GB, thyroidectomy. TOTAL LEFT KNEE 03/08/17 - Social History Smoking Status: Current every day smoker How long have you smoked: 22 years Exposure to second hand smoke: Yes Drug Use: none Patient Lives Alone: No - Female History Hx Last Menstrual Period: 2011 Hx Now: No <SAHARA JONES - Last Filed: 04/05/17 19:27> - Physical Exam General Appearance: mild distress, alert, obese (morbidly obese), other (head tender posteriorly with palpation) Eye Exam: PERRL/EOMI, eyes nml inspection, other (fundi are unremarkable) Ears, Nose, Throat Exam: normal ENT inspection, TMs normal, pharynx normal, moist mucous membranes Neck Exam: normal inspection, non-tender, supple, full range of motion Respiratory Exam: normal breath sounds, lungs clear, No respiratory distress Cardiovascular Exam: regular rate/rhythm, normal heart sounds, normal peripheral pulses Gastrointestinal/Abdomen Exam: soft, normal bowel sounds, No tenderness, No mass Back Exam: normal inspection, normal range of motion, No CVA tenderness, No vertebral tenderness Extremity Exam: normal inspection, normal range of motion, pelvis stable Neurologic Exam: alert, oriented x 3, cooperative, guest relations representative II-XII nml as tested, normal mood/affect, nml cerebellar function, nml station & gait, sensation nml, other (patient alert, oriented 3,no facial droop, speech normal, records management assistant equal 5 over 5, finger to nose normal, no pronator drift, sensation intact to all extremities), No motor deficits Skin Exam: normal color, warm, dry, No rash Lymphatic Exam: No adenopathy SpO2 Interpretation: normal (98%) SpO2: 98 Oxygen Delivery: Room Air <SAHARA JONES - Last Filed: 04/05/17 19:27> - Nursing Vital Signs Nursing Vital Signs: Initial Vital Signs Temperature 97.3 F 04/05/17 17:06 Pulse Rate 74 04/05/17 17:06 Respiratory Rate 20 04/05/17 17:06 Blood Pressure 100/58 04/05/17 17:06 O2 Sat by Pulse Oximetry 98 04/05/17 17:06 Pain Scale Pain Intensity 6 - Course Nursing assessment & vital signs reviewed: Yes EKG Interpreted by Me: RATE (71 bpm), Sinus Rhythm, NORMAL AXIS, Other (EKG sinus rhythm, 71 bpm, normal axis, no acute ST or Twave changes noted.) - CT Exams Head CT Interpretation: Discussed w/radiologist, Other (head CT: Stable normal head CT compared to January 02, 2014) Cervical Spine CT Interpretation: Discussed w/radiologist (CT C-spine: Stable lordotic reversal negative for fracture or subluxation) <SAHARA JONES - Last Filed: 04/05/17 19:27> - CT Exams Chest CT Interpretation: Negative, Tele-radiologist Report (Per Dr Carrington.), No PE <AYAD MCNULTY - Last Filed: 04/05/17 22:19> Ordered Tests: Active Orders 24 hr Category Date Time Status Accucheck STAT Care 04/05/17 17:29 Active EKG-ER Only STAT Care 04/05/17 17:29 Active IV Insertion STAT Care 04/05/17 17:29 Active Orthostatic Vital Signs STAT Care 04/05/17 17:29 Active Pulse Oximetry (ED) STAT Care 04/05/17 17:29 Active CERVICAL SPINE WO CONTRAST [CT] Stat Exams 04/05/17 17:30 Taken CHEST WITH CONTRAST [CT] Stat Exams 04/05/17 19:21 Taken HEAD WITHOUT CONTRAST [CT] Stat Exams 04/05/17 17:30 Taken CBC W DIFF Stat Lab 04/05/17 17:51 Completed CMP Stat Lab 04/05/17 17:51 Completed D-DIMER QUANTITATION Stat Lab 04/05/17 18:45 Completed TROPONIN Q3H Lab 04/05/17 17:45 Completed TROPONIN Q3H Lab 04/05/17 20:57 Completed TROPONIN Q3H Lab 04/05/17 23:45 Ordered TROPONIN Q3H Lab 04/06/17 02:45 Ordered TROPONIN Q3H Lab 04/06/17 05:45 Ordered Medication Summary Discontinued Medications Generic Name Dose Route Start Last Admin Trade Name Freq PRN Reason Stop Dose Admin Hydrocodone Bitart/Acetaminophen 1 tab 04/05/17 19:20 04/05/17 19:26 [place] 5/325 Mg PO 04/05/17 19:21 1 tab STAT ONE Administration Hydrocodone Bitart/Acetaminophen Confirm 04/05/17 19:25 [place] 5/325 Mg Administered 04/05/17 19:26 Dose 1 tab .ROUTE .STK-MED ONE Sodium Chloride 1,000 mls @ 999 mls/hr 04/05/17 17:29 04/05/17 17:47 Sodium Chloride 0.9% 1000 Ml IV 04/05/17 18:29 999 mls/hr .Q1H1M STA Administration Sodium Chloride Confirm 04/05/17 17:35 Sodium Chloride 0.9% 1000 Ml Administered 04/05/17 17:36 Dose 1,000 mls @ ud .ROUTE .STK-MED ONE Sodium Chloride 1,000 mls @ 999 mls/hr 04/05/17 19:20 04/05/17 19:26 Sodium Chloride 0.9% 1000 Ml IV 04/05/17 20:20 999 mls/hr .Q1H1M STA Administration Sodium Chloride Confirm 04/05/17 19:25 Sodium Chloride 0.9% 1000 Ml Administered 04/05/17 19:26 Dose 1,000 mls @ ud .ROUTE .STK-MED ONE Lab/Rad Data: Laboratory Result Diagrams 04/05/17 17:51 04/05/17 17:51 Laboratory Results 04/05/17 04/05/17 04/05/17 Range/Units 20:57 18:45 17:51 WBC (4.0-10.5) K/mm3 RBC (4.1-5.4) M/mm3 Hgb (12.0-16.0) gm/dl Hct (35-47) % MCV (78-100) fl MCH (26-32) pg MCHC (32-36) g/dl RDW (11.5-14.0) % Plt Count (150-450) K/mm3 MPV (6-9.5) fl Gran % (36.0-66.0) % Lymphocytes % (24.0-44.0) % Monocytes % (0.0-12.0) % Eosinophils % (0.00-5.0) % Basophils % (0.0-0.4) % Basophils # (0-0.4) D-Dimer 3657 H* (0-500) ng/mL Sodium 140 (136-145) mEq/L Potassium 3.8 (3.5-5.1) mEq/L Chloride 105 (98-107) mEq/L Carbon Dioxide 24.5 (21-32) mEq/L Anion Gap 14.6 (5-15) MEQ/L BUN 14 (9-20) mg/dL Creatinine 1.14 (0.55-1.30) mg/dl Estimated GFR 56 ML/MIN Glucose 132 H (70-110) MG/DL Calcium 9.3 (8.5-10.1) mg/dL Total Bilirubin 0.20 (0.2-1.0) mg/dL AST 23 (15-37) U/L ALT 24 (12-78) U/L Alkaline Phosphatase 119 H (46-116) U/L Troponin I < 0.017 (0.000-0.056) ng/ml Serum Total Protein 7.1 (6.4-8.2) gm/dL Albumin 3.3 L (3.4-5.0) g/dL 04/05/17 04/05/17 Range/Units 17:51 17:45 WBC 14.8 H (4.0-10.5) K/mm3 RBC 3.83 L (4.1-5.4) M/mm3 Hgb 11.2 L (12.0-16.0) gm/dl Hct 36.0 (35-47) % MCV 94.0 (78-100) fl MCH 29.2 (26-32) pg MCHC 31.1 L (32-36) g/dl RDW 14.1 H (11.5-14.0) % Plt Count 384 (150-450) K/mm3 MPV 9.9 H (6-9.5) fl Gran % 63.4 (36.0-66.0) % Lymphocytes % 28.4 (24.0-44.0) % Monocytes % 6.3 (0.0-12.0) % Eosinophils % 1.6 (0.00-5.0) % Basophils % 0.3 (0.0-0.4) % Basophils # 0.05 (0-0.4) D-Dimer (0-500) ng/mL Sodium (136-145) mEq/L Potassium (3.5-5.1) mEq/L Chloride (98-107) mEq/L Carbon Dioxide (21-32) mEq/L Anion Gap (5-15) MEQ/L BUN (9-20) mg/dL Creatinine (0.55-1.30) mg/dl Estimated GFR ML/MIN Glucose (70-110) MG/DL Calcium (8.5-10.1) mg/dL Total Bilirubin (0.2-1.0) mg/dL AST (15-37) U/L ALT (12-78) U/L Alkaline Phosphatase (46-116) U/L Troponin I < 0.017 (0.000-0.056) ng/ml Serum Total Protein (6.4-8.2) gm/dL Albumin (3.4-5.0) g/dL - Progress Progress: improved <SAAHRA JONES - Last Filed: 04/05/17 19:27> - Progress Progress: improved Counseled pt/family regarding: lab results, diagnosis, need for follow-up, rad results <AYAD MCNULTY - Last Filed: 04/05/17 22:19> - Progress Progress Note: 04/05/17 17:38 37-year-old white female who is morbidly obese brought by medics after patient apparently had a syncopal episode patient states that she was talking to her daughter she suddenly began to feel of dizzy she became diaphoretic she fell backwards striking her head she apparently was thought to have some seizure activity by her daughter. Patient has full range of motion to all extremities normal neurological examination she is tender with palpation on her posterior occiput. Will go ahead and obtain CBC CMP troponin head CT CT C-spine provide IV fluids, prescription 04/05/17 19:[address] CT C-spine no acute changes no fractures. Patient's EKG normal sinus rhythm 71 bpm normal axis no acute ST or T wave changes. Patient's troponin within normal limits white count 14.8 hemoglobin 11.2 hematocrit 31.1 Chemistry essentially normal Unfortunately patient's d-dimer is elevated at 3657. Patient is feeling better after a liter of normal saline she is rechecked after this she does go from a systolic blood pressure of 105-89 with standing. Will go ahead and obtain CT of chest give patient a second liter of normal saline. Patient did have a left total knee 4 weeks ago. I've discussed the case with Dr. Mcnulty. He will assume the patient's case secondary to shift change. (SAHARA JONES) 04/05/17 20:36 Pt care discussed and care accepted from Dr Jones at 19:00. (AYAD MCNULTY) <SAHARA JONES - Last Filed: 04/05/17 19:27> - Departure Time of Disposition: 22:17 Departure Disposition: Home Critical Care Time: No <AYAD MCNULTY - Last Filed: 04/05/17 22:19> - Departure Clinical Impression: Vasovagal syncope Condition: Stable Referrals: ANA GTZ [Primary Care Provider] - Additional Instructions: Your fainting episode was caused by a vasovagal reaction. You said you became dizzy after standing and walking a short distance. The chest CT did not show any pulmonary emboli. You were given IV fluids in the ER. Follow-up tomorrow.
[2017-04-05 17:55] LABS: BASOPHIL % 0.3 % (0.0-0.4); Eosinophil % 1.6 % (0.00-5.0); Granulocytes % 63.4 % (36.0-66.0); Lymphocytes % 28.4 % (24.0-44.0); Mean Corpuscular Hemoglobin 29.2 pg (26-32); Mean Platelet Volume 9.9 fl (6-9.5); Monocytes % 6.3 % (0.0-12.0); Platelet Count 384 K/mm3 (150-450); Red Blood Count 3.83 M/mm3 (4.1-5.4); Red Cell Distribution Width 14.1 % (11.5-14.0); White Blood Count 14.8 K/mm3 (4.0-10.5)
[2017-04-05 18:20] LABS: ALBUMIN 3.3 g/dL (3.4-5.0); ANION GAP 14.6 MEQ/L (5-15); BILIRUBIN,TOTAL 0.2 mg/dL (0.2-1.0); Carbon Dioxide 24.5 mEq/L (21-32); Potassium 3.8 mEq/L (3.5-5.1); Total Protein 7.1 gm/dL (6.4-8.2)
[2017-04-05] MEDS ORDERED: NORCO 5/325 MG PO ONE (19:20)
[2017-04-05] MEDS ORDERED: NORCO 5/325 MG ONE (19:25)
[2017-04-05 21:59] VITALS: BP 87/52; PULSE 73; O2SAT 95
--- NOTE | 2017-04-06 08:35 | XRAY ---
Indication: Head injury following syncopal episode. Headache and chills. Multiple contiguous axial images obtained through the head without contrast. Comparison: January 02, 2014. Again normal appearing brain parenchyma, ventricles, and bony calvarium. Visualized paranasal sinuses and mastoid air cells are clear. Impression: Stable normal CT head without contrast exam. CT DI 50.62
--- NOTE | 2017-04-06 08:41 | XRAY ---
Indication: Pain. Head injury following syncopal episode. Headache and chills. Multiple contiguous axial images obtained through the cervical spine. Sagittal and coronal reformatted images obtained. Comparison: November 07, 2009. Axial images again negative for acute fracture, suspicious bony lesions, or spinal canal stenosis. Sagittal and coronal reformatted images again demonstrates cervical lordotic reversal, positional versus paraspinal muscular spasm. Disc spaces maintained. No acute compression fracture, subluxation, or jumped facet. Normal-appearing craniocervical junction. Visualized noncontrasted soft tissues again demonstrates total thyroidectomy. Impression: 1. Again cervical lordotic reversal, positional versus paraspinal spasm. 2. Negative acute fracture/subluxation. CT DI 124.80
--- NOTE | 2017-04-06 09:01 | XRAY ---
Indication: Syncopal episode. Elevated d-dimer. Multiple contiguous axial images obtained through the chest using 80 cc Isovue 370 contrast and PE protocol. Comparison: August 20, 2014. There is again poor opacification of the pulmonary arteries limiting evaluation for pulmonary embolus. No large central filling defect or pulmonary embolus. Heart is not enlarged. Aorta is normal in course and caliber. No pathologic mediastinal/hilar lymphadenopathy. Examination of the lung parenchyma again demonstrates a few calcified granulomas. No infiltrate, consolidation, or effusion. Bony thorax intact. Limited upper abdomen again demonstrates fatty liver and cholecystectomy clips. Impression: 1. Again limited evaluation for pulmonary embolus due to poor opacification of the pulmonary arteries. No obvious central pulmonary embolus. 2. Again evidence for old granulomatous disease. 3. No new/acute cardiopulmonary abnormalities. 4. Incidental fatty liver. CT DI 23.69
== END 2017-04-05 22:32 | disposition home or self-care (01) ==
LOC: ED 17:05
DX: R55 Syncope and collapse (principal); W22.01XA Walked into wall, initial encounter; R51 Headache; E03.9 Hypothyroidism, unspecified; I10 Essential (primary) hypertension
CPT/HCPCS: 36000; 36415; 70450; 71260; 72125; 80053; 82962; 84484; 85025; 85379; 93005; 96360; 96361; 99284; A9270-GY

== ENCOUNTER 2017-07-19 12:32 | Emergency (ER) | payer MEDICARE ==
[2017-07-19 12:51] VITALS: O2SAT 98
[2017-07-19] MEDS ORDERED: Sodium Chloride 0.9% 1000 ML 1,000 ML IV STA (12:59)
--- NOTE | 2017-07-19 13:11 | ERPHSYRPT ---
- History of Present Illness Time Seen by Provider: 07/19/17 13:06 Source: patient Exam Limitations: no limitations Patient Subjective Stated Complaint: PT REPORTS THIS MORNING SHE PASSED OUT- STATES SHE HAS A HX OF THIS WITH TREATMENT BUT HASN'T HAD ANY EPISODES IN A COUPLE OF MONTHS-REPORTS DIZZINESS BUT DENIES PAIN-STATES SHE FEELS LIKE SHE IS DEHYDRATED Triage Nursing Assessment: PT PINK WARM AND [id number] EASY AND NONLABORED- PT ABLE TO MOVE ALL EXTREMITIES WITH EASE-SPEAKING COHERATNLY WITH NO DIFFICUTLY NOTED Physician History: patient with history of neurogenic syncope who presents with syncopal episode that occurred at around 7 AM this morning. Patient states she was standing at counter when she noticed increasing dizziness/vertigo. Patient called out to her daughter who came and caught her before she fell. Patient states that she had loss of consciousness for a few seconds. Patient was doing well prior to episode. Patient without seizures, recent illness, no earaches, tinnitus, no sore throat, no cough no chest/abdominal pain, no urinary symptoms, no blurred vision, no facial or focal weakness and no headaches. Patient states that she took meclizine that seemed to help somewhat. Patient went to the walk-in clinic and stated her systolic blood pressure was in the 90's and her heart rate was in 120s. She was sent to ER for further evaluation. Patient had a full workup 3 months when similar symptoms occurred and had head CT, chest CT and cervical spine CT, which were all normal. Timing/Duration: today, intermittent, resolved prior to arrival Severity: moderate Character of Deficits: other (dizziness) Deficits: no difficulties, off balance Baseline/Normal Cognition: alert oriented x 3 Current Cognition: alert oriented x 3 Baseline Gait: walks w/o assistance Associated Symptoms: ringing in ears, trouble walking, No confusion, No fever, No chills, No numbness/tingling in legs/feet, No seizures, No slurred speech Allergies/Adverse Reactions: sumatriptan [From Imitrex] Allergy (Severe, Verified 07/19/17 12:52) heart spasms sumatriptan succinate [From Imitrex] Allergy (Severe, Verified 07/19/17 12:52) heart spasms aspirin Allergy (Intermediate, Verified 07/19/17 12:52) bleeding Home Medications: Levothyroxine Sodium 150 Mcg [Synthroid 150 Mcg] 150 mcg PO DAILY 07/09/16 [History] Apixaban [Eliquis] 5 mg PO BID 12/08/16 [History] Amlodipine Besylate [Norvasc] 2.5 mg PO DAILY 12/27/16 [History] Gabapentin [Neurontin] 300 mg PO HS 12/27/16 [History] Metoprolol Tartrate 25 mg [Lopressor 25MG Tab] 25 mg PO BID 12/27/16 [ History] Omeprazole 20 MG [Prilosec 20 mg] 20 mg PO DAILY 12/27/16 [History] Lidocaine 1 each TP DAILY 04/05/17 [History] Hx Tetanus, Diphtheria Vaccination/Date Given: Yes Hx Influenza Vaccination/Date Given: Yes Hx Pneumococcal Vaccination/Date Given: Yes Immunizations Up to Date: Yes - Review of Systems Constitutional: No Fever, No Chills Eyes: No Symptoms Ears, Nose, & Throat: No Symptoms Respiratory: No Cough, No Dyspnea Cardiac: No Chest Pain, No Edema, No Syncope Abdominal/Gastrointestinal: No Abdominal Pain, No Nausea, No Vomiting, No Diarrhea Genitourinary Symptoms: No Dysuria Musculoskeletal: No Back Pain, No Neck Pain Skin: No Rash Neurological: Dizziness, No Focal Weakness, No Gait Changes, No Seizure, No Sensory Changes Psychological: No Symptoms Endocrine: No Symptoms All Other Systems: Reviewed and Negative - Past Medical History Pertinent Past Medical History: Yes Neurological History: Migraines ENT History: No Pertinent History Cardiac History: Angina, Arrhythmia, Hypertension Respiratory History: Sleep Apnea Endocrine Medical History: Hypothyroidism, Thyroid Cancer Musculoskeletal History: Arthritis, Fibromyalgia GI Medical History: Irritable Bowel History: No Pertinent History Psycho-Social History: Anxiety, Depression Female Reproductive Disorders: Endometriosis Other Medical History: Pt notes extensive surgical history of R knee. 6 scopes, ACL repair. Notes injured R knee at age 14. [place]. NEUROGENIC SYNCOPAL EPISODES - Past Surgical History Past Surgical History: Yes Neuro Surgical History: No Pertinent History Cardiac: Cardiac Catheterization Respiratory: No Pertinent History Gastrointestinal: Cholecystectomy Genitourinary: No Pertinent History Musculoskeletal: Joint Replacement, Orthopedic Surgery Female Surgical History: Hysterectomy Other Surgical History: breast reduction, total knee rt, partial knee rt, 8-9 arthroscopies rt knee, ACL repairs x3 rt knee, GB, thyroidectomy. TOTAL LEFT KNEE 03/08/17 - Social History Smoking Status: Current every day smoker How long have you smoked: 22 years Exposure to second hand smoke: Yes Drug Use: none Patient Lives Alone: No - Female History Hx Last Menstrual Period: HYSTERECTOMY Hx Now: No - Nursing Vital Signs Nursing Vital Signs: Initial Vital Signs Pulse Rate 64 07/19/17 12:47 Respiratory Rate 18 07/19/17 12:47 O2 Sat by Pulse Oximetry 98 07/19/17 12:47 Pain Scale Pain Intensity 0 - Chris Coma Scale Best Eye Response ([place]): (4) open spontaneously Best Verbal Response (Chris): (5) oriented Best Motor Response (Chris): (6) obeys commands [place] Total: 15 - Physical Exam General Appearance: no apparent distress, alert Eye Exam: bilateral eye: PERRL, EOMI Ears, Nose, Throat Exam: normal ENT inspection, moist mucous membranes Neck Exam: normal inspection, non-tender, supple Respiratory: normal breath sounds, lungs clear, airway intact, No respiratory distress Cardiovascular: regular rate/rhythm, No edema Gastrointestinal: soft, No tenderness, No distention Back Exam: normal inspection Extremity Exam: normal inspection, No pedal edema Peripheral Pulses: dorsalis-pedis (R): 2+, dorsalis-pedis (L): 2+ 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, 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: normal hearing, normal speech, PERRL, tongue midline Coordination/Gait: normal finger to nose, normal gait Motor/Sensory: no motor deficit, negative Babinski's sign DTR: knee (R): 2+, ankle (R): 2+ Skin Exam: normal color, warm, dry, No rash SpO2: 98 Oxygen Delivery: Room Air - Course Nursing assessment & vital signs reviewed: Yes EKG Interpreted by Me: RATE (49), Sinus Jian, NORMAL AXIS, NORMAL INTERVALS, NORMAL QRS - CT Exams Head CT Interpretation: Negative, Tele-radiologist Report Ordered Tests: Active Orders 24 hr Category Date Time Status Clean Catch Urine Specimen STAT Care 07/19/17 12:59 Active Clean Catch Urine Specimen STAT Care 07/19/17 13:13 Active EKG-ER Only STAT Care 07/19/17 12:59 Active IV Insertion STAT Care 07/19/17 12:59 Active Orthostatic Vital Signs STAT Care 07/19/17 12:59 Active HEAD WITHOUT CONTRAST [CT] Stat Exams 07/19/17 13:01 Completed BMP Stat Lab 07/19/17 14:01 Completed CBC W DIFF Stat Lab 07/19/17 14:01 Completed TROPONIN Q3H Lab 07/19/17 14:01 Completed UA W/RFX UR CULTURE Stat Lab 07/19/17 14:02 Completed Urine Triage Profile Stat Lab 07/19/17 14:02 Completed Medication Summary Discontinued Medications Generic Name Dose Route Start Last Admin Trade Name Freq PRN Reason Stop Dose Admin Sodium Chloride 1,000 mls @ 999 mls/hr 07/19/17 12:59 07/19/17 13:30 Sodium Chloride 0.9% 1000 Ml IV 07/19/17 13:59 999 mls/hr .Q1H1M STA Administration Sodium Chloride Confirm 07/19/17 13:15 Sodium Chloride 0.9% 1000 Ml Administered 07/19/17 13:16 Dose 1,000 mls @ ud .ROUTE .STK-MED ONE Meclizine HCl 50 mg 07/19/17 13:14 07/19/17 13:55 Antivert 25 Mg PO 07/19/17 13:15 50 mg STAT ONE Administration Meclizine HCl Confirm 07/19/17 13:34 Antivert 25 Mg Administered 07/19/17 13:35 Dose 25 mg .ROUTE .STK-MED ONE Lab/Rad Data: Laboratory Result Diagrams 07/19/17 14:01 07/19/17 14:01 Laboratory Results 07/19/17 07/19/17 07/19/17 Range/Units 14:02 14:02 14:01 WBC (4.0-10.5) K/mm3 RBC (4.1-5.4) M/mm3 Hgb (12.0-16.0) gm/dl Hct (35-47) % MCV (78-100) fl MCH (26-32) pg MCHC (32-36) g/dl RDW (11.5-14.0) % Plt Count (150-450) K/mm3 MPV (6-9.5) fl Gran % (36.0-66.0) % Lymphocytes % (24.0-44.0) % Monocytes % (0.0-12.0) % Eosinophils % (0.00-5.0) % Basophils % (0.0-0.4) % Basophils # (0-0.4) Sodium (137-145) mmol/L Potassium (3.5-5.1) mmol/L Chloride (98-107) mmol/L Carbon Dioxide (22-30) mmol/L Anion Gap (5-15) MEQ/L BUN (7-17) mg/dL Creatinine (0.52-1.04) mg/dL Estimated GFR ML/MIN Glucose (74-106) mg/dL Calcium (8.4-10.2) mg/dL Troponin I < 0.012 (0.000-0.034) ng/mL Ur Collection Type CLEAN CATCH Urine Color YELLOW (YELLOW) Urine Appearance CLEAR (CLEAR) Urine pH 5.0 (5-6) Ur Specific [place] 1.010 (1.005-1.025) Urine Protein NEGATIVE (Negative) Urine Ketones NEGATIVE (NEGATIVE) Urine Blood NEGATIVE (0-5) Jose/ul Urine Nitrite NEGATIVE (NEGATIVE) Urine Bilirubin NEGATIVE (NEGATIVE) Urine Urobilinogen NORMAL (0-1) mg/dL Ur Leukocyte Esterase NEGATIVE (NEGATIVE) Urine Culture Reflexed NO (NO) Urine Glucose NEGATIVE (NEGATIVE) mg/dL Urine Opiates Level NEGATIVE (NEGATIVE) Ur Methadone NEGATIVE (NEGATIVE) Urine Barbiturates NEGATIVE (NEGATIVE) Ur Phencyclidine (PCP) NEGATIVE (NEGATIVE) Urine Amphetamine NEGATIVE (NEGATIVE) U Benzodiazepine Level NEGATIVE (NEGATIVE) Urine Cocaine NEGATIVE (NEGATIVE) Urine Marijuana (THC) NEGATIVE (NEGATIVE) Specimen Received 07/19/17 1330 07/19/17 07/19/17 Range/Units 14:01 14:01 WBC 12.5 H (4.0-10.5) K/mm3 RBC 4.24 (4.1-5.4) M/mm3 Hgb 12.2 (12.0-16.0) gm/dl Hct 38.9 (35-47) % MCV 91.7 (78-100) fl MCH 28.8 (26-32) pg MCHC 31.4 L (32-36) g/dl RDW 13.7 (11.5-14.0) % Plt Count 358 (150-450) K/mm3 MPV 9.8 H (6-9.5) fl Gran % 60.4 (36.0-66.0) % Lymphocytes % 32.3 (24.0-44.0) % Monocytes % 5.6 (0.0-12.0) % Eosinophils % 1.3 (0.00-5.0) % Basophils % 0.4 (0.0-0.4) % Basophils # 0.05 (0-0.4) Sodium 141 (137-145) mmol/L Potassium 4.6 (3.5-5.1) mmol/L Chloride 105 (98-107) mmol/L Carbon Dioxide 27 (22-30) mmol/L Anion Gap 13.0 (5-15) MEQ/L BUN 11 (7-17) mg/dL Creatinine 0.89 (0.52-1.04) mg/dL Estimated GFR > 60 ML/MIN Glucose 107 H (74-106) mg/dL Calcium 9.2 (8.4-10.2) mg/dL Troponin I (0.000-0.034) ng/mL Ur Collection Type Urine Color (YELLOW) Urine Appearance (CLEAR) Urine pH (5-6) Ur Specific [place] (1.005-1.025) Urine Protein (Negative) Urine Ketones (NEGATIVE) Urine Blood (0-5) Jose/ul Urine Nitrite (NEGATIVE) Urine Bilirubin (NEGATIVE) Urine Urobilinogen (0-1) mg/dL Ur Leukocyte Esterase (NEGATIVE) Urine Culture Reflexed (NO) Urine Glucose (NEGATIVE) mg/dL Urine Opiates Level (NEGATIVE) Ur Methadone (NEGATIVE) Urine Barbiturates (NEGATIVE) Ur Phencyclidine (PCP) (NEGATIVE) Urine Amphetamine (NEGATIVE) U Benzodiazepine Level (NEGATIVE) Urine Cocaine (NEGATIVE) Urine Marijuana (THC) (NEGATIVE) Specimen Received - Progress Progress: improved Progress Note: 07/19/17 14:40 Pt. given Meclizine 50mg with good relief of her symptoms. 07/19/17 14:52 Patient with heart rates in the 50s to 60s. Blood pressure was hemodynamically stable during ED stay Discussed with : John Will see patient in: office Counseled pt/family regarding: lab results, diagnosis, rad results - Departure Time of Disposition: 14:40 Departure Disposition: Home Clinical Impression: Dizziness, Syncope Condition: Stable Critical Care Time: No Referrals: GUILLE LOPEZ [Primary Care Provider] - Instructions: Syncope (Fainting), Vertigo (a Type of Dizziness) (DC) Additional Instructions: Follow-up with Dr. Lopez as scheduled. Stop metoprolol. Drink plenty of fluids Return for worse dizziness, headaches, blurred vision, weakness or any problems.
[2017-07-19] MEDS ORDERED: ANTIVERT 25 MG PO ONE (13:14)
[2017-07-19] MEDS ORDERED: Sodium Chloride 0.9% 1000 ML 1,000 ML ONE (13:15)
[2017-07-19] MEDS ORDERED: ANTIVERT 25 MG ONE ×2 (13:34→20:54)
--- NOTE | 2017-07-19 13:37 | XRAY ---
Indication: Syncopal episode. Dizziness. Multiple contiguous axial images obtained through the head without contrast. Comparison: April 05, 2017. Several images slightly degraded by minimal motion artifact. No acute intracranial hemorrhage, abnormal extra-axial fluid collection, or mass effect. Fourth ventricle is midline without hydrocephalus. Sotomayor-white matter differentiation preserved. Bony calvarium intact. Visualized paranasal sinuses and mastoid air cells are clear. Impression: Minimal motion artifact. Grossly stable negative CT head without contrast exam. CT DI 70.38
[2017-07-19 14:05] LABS: Appearance CLEAR (CLEAR); Bilirubin NEGATIVE (NEGATIVE); Blood NEGATIVE Ery/ul (0-5); Glucose NEGATIVE (NEGATIVE); Ketones NEGATIVE (NEGATIVE); Leukocyte Esterase NEGATIVE (NEGATIVE); Nitrite NEGATIVE (NEGATIVE); Protein,Urine Dip NEGATIVE (Negative); Urobilinogen NORMAL mg/dL (0-1)
[2017-07-19 14:06] LABS: BASOPHIL % 0.4 % (0.0-0.4); Basophil (Absolute #) 0.05 (0-0.4); Eosinophil % 1.3 % (0.00-5.0); Eosinophil (Absolute #) 0.16 (0-0.5); Granulocyte Absolute (ANC) 7.52 (1.4-6.9); Granulocytes % 60.4 % (36.0-66.0); Hematocrit 38.9 % (35-47); Hemoglobin 12.2 gm/dl (12.0-16.0); Lymphocyte (Absolute #) 4.02 (1.0-4.6); Lymphocytes % 32.3 % (24.0-44.0); Mean Cell Volume 91.7 fl (78-100); Mean Corpuscular Hemoglobin 28.8 pg (26-32); Mean Corpuscular Hgb Concent. 31.4 g/dl (32-36); Mean Platelet Volume 9.8 fl (6-9.5); Monocytes % 5.6 % (0.0-12.0); Platelet Count 358 K/mm3 (150-450); Red Blood Count 4.24 M/mm3 (4.1-5.4); Red Cell Distribution Width 13.7 % (11.5-14.0); White Blood Count 12.5 K/mm3 (4.0-10.5)
[2017-07-19 14:26] LABS: BLOOD UREA NITROGEN 11 mg/dL (7-17); CHLORIDE 105 mmol/L (98-107); Calcium 9.2 mg/dL (8.4-10.2); Carbon Dioxide 27 mmol/L (22-30); Creatinine 1 0.89 mg/dL (0.52-1.04); Glucose 107 mg/dL (74-106); Potassium 4.6 mmol/L (3.5-5.1); SODIUM 141 mmol/L (137-145)
[2017-07-19 14:37] LABS: Amphetamine,Urine NEGATIVE (NEGATIVE); Barbiturate,Urine NEGATIVE (NEGATIVE); Benzodiazepine,Urine NEGATIVE (NEGATIVE); Cocaine,Urine NEGATIVE (NEGATIVE); Methadone,Urine NEGATIVE (NEGATIVE); Opiate,Urine NEGATIVE (NEGATIVE); PCP,Urine NEGATIVE (NEGATIVE); THC,Urine NEGATIVE (NEGATIVE)
[2017-07-19 15:35] VITALS: BP 105/65; PULSE 70
== END 2017-07-19 15:35 | disposition home or self-care (01) ==
LOC: ED 12:32
DX: R42 Dizziness and giddiness (principal); R55 Syncope and collapse; Z79.899 Other long term (current) drug therapy
CPT/HCPCS: 36000; 36415; 70450; 80048; 80307; 81002; 84484; 85025; 93005; 96360; 99284; A9270-GY

== ENCOUNTER 2018-01-30 03:07 | Emergency (ER) | payer MEDICARE ==
--- NOTE | 2018-01-30 03:28 | ERPHSYRPT ---
- History of Present Illness Time Seen by Provider: 01/30/18 03:27 Source: patient, family Exam Limitations: no limitations Physician History: 37 y/o white female presents with cough and intermittent gagging leading to vomiting secondary to coughing episodes for 6 weeks. pt just completed a z pack regimen. on 01/28/18, she began a prescription of cefdinir and prednisone. she was given an albuterol rx but insurance provider has not yet authorized filling it yet. pt was seen at [facility] on 01/28/18 and had a cxr. Timing/Duration: week(s) (6) Cough Quality/Degree: moderate, dry cough Possible Cause: occasional episodes Modifying Factors: Improves With: coughing, deep breath (worsens) Associated Symptoms: cough, No fever, No chills, No chest pain/soreness, No dizziness, No earache, No facial pain, No lightheadedness, No muscle aches, No nasal congestion, No nasal drainage, No shortness of breath, No sinus infection Allergies/Adverse Reactions: sumatriptan [From Imitrex] Allergy (Severe, Verified 01/30/18 03:30) heart spasms sumatriptan succinate [From Imitrex] Allergy (Severe, Verified 01/30/18 03:30) heart spasms aspirin Allergy (Intermediate, Verified 01/30/18 03:30) bleeding Home Medications: Levothyroxine Sodium 150 Mcg [Synthroid 150 Mcg] 150 mcg PO DAILY 07/09/16 [History] Apixaban [Eliquis] 5 mg PO BID 12/08/16 [History] Omeprazole 20 MG [Prilosec 20 mg] 20 mg PO DAILY 12/27/16 [History] Midodrine HCl 5 mg [Proamatine 5 mg] 5 mg PO BID 01/30/18 [History] Topiramate [Topamax] 1 tab PO BID 01/30/18 [History] Hx Tetanus, Diphtheria Vaccination/Date Given: Yes Hx Influenza Vaccination/Date Given: Yes Hx Pneumococcal Vaccination/Date Given: Yes - Review of Systems Constitutional: No Symptoms, No Fever, No Chills Eyes: No Symptoms, No Discharge, No Eye Pain Ears, Nose, & Throat: No Symptoms, No Ear Pain Respiratory: Cough, No Cyanosis, No Dyspnea, No Stridor, No Wheezing Cardiac: No Symptoms, No Chest Pain, No Palpitations, No Syncope Abdominal/Gastrointestinal: No Symptoms, Vomiting (only assoc with gagging secondary to coughin episode), No Abdominal Pain, No Nausea, No Diarrhea Genitourinary Symptoms: No Symptoms, Dysuria, Frequency, Hematuria Musculoskeletal: No Symptoms Skin: No Symptoms Neurological: No Symptoms Psychological: No Symptoms Endocrine: No Symptoms Hematologic/Lymphatic: No Symptoms Immunological/Allergic: No Symptoms All Other Systems: Reviewed and Negative - Past Medical History Pertinent Past Medical History: Yes Neurological History: Migraines ENT History: No Pertinent History Cardiac History: Angina, Arrhythmia, Hypertension Respiratory History: Sleep Apnea Endocrine Medical History: Hypothyroidism, Thyroid Cancer Musculoskeletal History: Arthritis, Fibromyalgia GI Medical History: Irritable Bowel History: No Pertinent History Psycho-Social History: Anxiety, Depression Female Reproductive Disorders: Endometriosis Other Medical History: Pt notes extensive surgical history of R knee. 6 scopes, ACL repair. Notes injured R knee at age 14. [place]. NEUROGENIC SYNCOPAL EPISODES - Past Surgical History Past Surgical History: Yes Neuro Surgical History: No Pertinent History Cardiac: Cardiac Catheterization Respiratory: No Pertinent History Gastrointestinal: Cholecystectomy Genitourinary: No Pertinent History Musculoskeletal: Joint Replacement, Orthopedic Surgery Female Surgical History: Hysterectomy Other Surgical History: breast reduction, total knee rt, partial knee rt, 8-9 arthroscopies rt knee, ACL repairs x3 rt knee, GB, thyroidectomy. TOTAL LEFT KNEE 03/08/17 - Social History Smoking Status: Current every day smoker How long have you smoked: 22 years Exposure to second hand smoke: Yes Drug Use: none Patient Lives Alone: No - Nursing Vital Signs Nursing Vital Signs: Initial Vital Signs Temperature 97.3 F 01/30/18 03:22 Pulse Rate 80 01/30/18 03:22 Respiratory Rate 18 01/30/18 03:22 Blood Pressure 134/90 01/30/18 03:22 O2 Sat by Pulse Oximetry 93 L 01/30/18 03:22 Pain Scale Pain Intensity 6 - Physical Exam General Appearance: mild distress, alert, anxiety Eye Exam: PERRL/EOMI Ears, Nose, Throat Exam: normal ENT inspection, TMs normal Neck Exam: normal inspection, non-tender, supple, full range of motion Respiratory Exam: normal breath sounds, lungs clear, No respiratory distress, No airway intact, No accessory muscle use, No rhonchi, No wheezing, No stridor Cardiovascular Exam: regular rate/rhythm, normal heart sounds, normal peripheral pulses Gastrointestinal/Abdomen Exam: soft, normal bowel sounds, No tenderness, No guarding, No rebound Pelvic Exam: not done Rectal Exam: not done Back Exam: normal inspection, normal range of motion, No CVA tenderness, No vertebral tenderness Extremity Exam: normal inspection, normal range of motion, pelvis stable, amputations Neurologic Exam: alert, oriented x 3, cooperative, knitting demonstrator II-XII nml as tested, normal mood/affect, nml cerebellar function, nml station & gait Skin Exam: normal color, warm, dry Lymphatic Exam: No adenopathy SpO2 Interpretation: normal - Course Nursing assessment & vital signs reviewed: Yes Ordered Tests: Medication Summary Discontinued Medications Generic Name Dose Route Start Last Admin Trade Name Jorgeq PRN Reason Stop Dose Admin Hydrocodone Bitart/Acetaminophen 15 ml 01/30/18 03:43 01/30/18 03:50 Hydrocodone-Acetamin 2.5-108/5 Ml Solution PO 01/30/18 03:44 15 ml STAT STA Administration Hydrocodone Bitart/Acetaminophen Confirm 01/30/18 03:48 Hydrocodone-Acetamin 2.5-108/5 Ml Solution Administered 01/30/18 03:49 Dose 15 ml .ROUTE .STK-MED ONE Methylprednisolone Sodium Succinate 125 mg 01/30/18 03:43 01/30/18 03:50 Solu-Medrol 125 Mg IM 01/30/18 03:44 125 mg STAT ONE Administration Methylprednisolone Sodium Succinate Confirm 01/30/18 03:48 Solu-Medrol 125 Mg Administered 01/30/18 03:49 Dose 125 mg .ROUTE .STK-MED ONE Lab/Rad Data: cxr from [facility] no acute process. - Progress Progress: improved, re-examined Air Movement: good Blood Culture(s) Obtained: No Antibiotics given: No Counseled pt/family regarding: diagnosis, need for follow-up - Departure Time of Disposition: 04:11 Departure Disposition: Home Clinical Impression: Bronchitis Condition: Stable Critical Care Time: No Referrals: KATHRYN DICK [Primary Care Provider] - Additional Instructions: drink plenty of fluids. take medications as prescribed. follow up with primary doctor next week for persistent symptoms. fill your albuterol inhaler prescription Prescriptions: Hydrocodone Bit/Acetaminophen [Hydrocodone-Acetaminophen Soln] 10 ml PO Q6H # 120 ml
[2018-01-30 03:30] VITALS: PULSE 80
[2018-01-30] MEDS ORDERED: solu-MEDROL 125 MG IM ONE (03:43)
[2018-01-30] MEDS ORDERED: HYDROCODONE-ACETAMIN 2.5-108/5 ML SOLUTION PO STA (03:43)
[2018-01-30] MEDS ORDERED: solu-MEDROL 125 MG ONE (03:48)
[2018-01-30] MEDS ORDERED: HYDROCODONE-ACETAMIN 2.5-108/5 ML SOLUTION ONE (03:48)
[2018-01-30 04:22] VITALS: BP 126/82; O2SAT 94
== END 2018-01-30 04:25 | disposition home or self-care (01) ==
LOC: ED 03:07
DX: J40 Bronchitis, not specified as acute or chronic (principal); Z79.899 Other long term (current) drug therapy
CPT/HCPCS: 96372; 99283; J2930

== ENCOUNTER 2018-04-13 15:08 | Emergency (ER) | payer MEDICARE ==
[2018-04-13 15:26] VITALS: BP 115/84; PULSE 72; O2SAT 99
[2018-04-13] MEDS ORDERED: Zofran 4 MG/2 ML VIAL IV ONE (15:34)
[2018-04-13] MEDS ORDERED: Sodium Chloride 0.9% 1000 ML 1,000 ML IV STA (15:34)
--- NOTE | 2018-04-13 16:13 | ERPHSYRPT ---
- History of Present Illness Historian: patient, family Exam Limitations: no limitations Patient Subjective Stated Complaint: Pain in upper and lower right side quadrants of abdomen that began about 1345 Triage Nursing Assessment: Pt c/o of pain in the upper and lower quadrants of the right side of abdomen, began approx 1345, worse with movement, vitals wnl, pulses normal, bowel sounds heard in all 4 quadrants, rates pain 8/10, still has appendix, hx of partial hysterectomy, denies any problems with urination or bowels, denies flank pain, Physician History: Pt is a 38y/o female, that presented to the ED with complains of abdominal pain right sided, middle to lower abdomen. Pt stated, the pain started suddenly. She did have a BM today. No N/V. She still has her amnesics and both ovaries. Pt denies F/C/S. No chest pain or palpitations. No SOB or cough. No dysuria , frequency or urgency. Timing/Duration: today Activities at Onset: none Quality: aching Abdominal Pain Onset Location: RLQ (and mid right side), flank (right sided) Pain Radiation: no radiation Severity of Pain-Max: moderate Severity of Pain-Current: moderate Modifying Factors: Improves With: nothing Associated Symptoms: denies symptoms Previous symptoms: no prior history Allergies/Adverse Reactions: sumatriptan [From Imitrex] Allergy (Severe, Verified 04/13/18 15:26) heart spasms sumatriptan succinate [From Imitrex] Allergy (Severe, Verified 04/13/18 15:26) heart spasms aspirin Allergy (Intermediate, Verified 04/13/18 15:26) bleeding Home Medications: Levothyroxine Sodium 150 Mcg [Synthroid 150 Mcg] 150 mcg PO DAILY 07/09/16 [History] Omeprazole 20 MG [Prilosec 20 mg] 20 mg PO DAILY 12/27/16 [History] Sumatriptan Succinate [Zembrace Symtouch] 3 mg SQ UD PRN 04/13/18 [History] Hx Tetanus, Diphtheria Vaccination/Date Given: Yes Hx Influenza Vaccination/Date Given: Yes Hx Pneumococcal Vaccination/Date Given: Yes - Review of Systems Constitutional: No Fever, No Chills Eyes: No Symptoms Ears, Nose, & Throat: No Symptoms Respiratory: No Cough, No Dyspnea Cardiac: No Chest Pain, No Edema, No Syncope Abdominal/Gastrointestinal: Abdominal Pain Genitourinary Symptoms: No Dysuria Musculoskeletal: No Back Pain, No Neck Pain Skin: No Rash Neurological: No Dizziness, No Focal Weakness, No Sensory Changes Psychological: No Symptoms Endocrine: No Symptoms All Other Systems: Reviewed and Negative - Past Medical History Pertinent Past Medical History: Yes Neurological History: Migraines ENT History: No Pertinent History Cardiac History: Angina, Arrhythmia, Hypertension Respiratory History: Sleep Apnea Endocrine Medical History: Hypothyroidism, Thyroid Cancer Musculoskeletal History: Arthritis, Fibromyalgia GI Medical History: Irritable Bowel History: No Pertinent History Psycho-Social History: Anxiety, Depression Female Reproductive Disorders: Endometriosis Other Medical History: Pt notes extensive surgical history of R knee. 6 scopes, ACL repair. Notes injured R knee at age 14. [place]. NEUROGENIC SYNCOPAL EPISODES - Past Surgical History Past Surgical History: Yes Neuro Surgical History: No Pertinent History Cardiac: Cardiac Catheterization Respiratory: No Pertinent History Gastrointestinal: Cholecystectomy Genitourinary: No Pertinent History Musculoskeletal: Joint Replacement, Orthopedic Surgery Female Surgical History: Hysterectomy Other Surgical History: breast reduction, total knee rt, partial knee rt, 8-9 arthroscopies rt knee, ACL repairs x3 rt knee, GB, thyroidectomy. TOTAL LEFT KNEE 03/08/17 - Social History Smoking Status: Current every day smoker How long have you smoked: 22 years Exposure to second hand smoke: Yes Drug Use: none Patient Lives Alone: No - Female History Hx Now: No (partial hysterectomy) - Nursing Vital Signs Nursing Vital Signs: Initial Vital Signs Temperature 97.7 F 04/13/18 15:17 Pulse Rate 72 04/13/18 15:17 Blood Pressure 115/84 04/13/18 15:17 O2 Sat by Pulse Oximetry 99 04/13/18 15:17 Pain Scale Pain Intensity 8 - Physical Exam General Appearance: mild distress, alert Eye Exam: PERRL/EOMI, eyes nml inspection Ears, Nose, Throat Exam: normal ENT inspection, pharynx normal, moist mucous membranes Neck Exam: normal inspection, non-tender, supple, full range of motion Respiratory Exam: normal breath sounds, lungs clear, No respiratory distress Cardiovascular Exam: regular rate/rhythm, normal heart sounds Gastrointestinal/Abdomen Exam: soft, tenderness (R middle and low quadrants) Pelvic Exam: not done, deferred Back Exam: normal inspection, normal range of motion, No CVA tenderness, No vertebral tenderness Extremity Exam: normal inspection, normal range of motion, pelvis stable Neurologic Exam: alert, oriented x 3, cooperative, normal mood/affect, nml cerebellar function, sensation nml, No motor deficits Skin Exam: normal color, warm, dry SpO2: 99 Oxygen Delivery: Room Air - CT Exams Abdomen/Pelvis CT Interpretation: Tele-radiologist Report (Stable tiny renal cyst. Remaining CT abd/pelvis with contrast exam is negative.) Ordered Tests: Active Orders 24 hr Category Date Time Status IV Insertion STAT Care 04/13/18 15:34 Active ABDOMEN AND PELVIS W CONTRAST [CT] Stat Exams 04/13/18 15:35 Completed AMYLASE Stat Lab 04/13/18 16:23 Completed CBC W DIFF Stat Lab 04/13/18 16:23 Completed CMP Stat Lab 04/13/18 16:23 Completed LIPASE Stat Lab 04/13/18 16:23 Completed Lactic Acid Stat Lab 04/13/18 16:23 Completed UA W/RFX UR CULTURE Stat Lab 04/13/18 17:00 Completed Medication Summary Discontinued Medications Generic Name Dose Route Start Last Admin Trade Name Jorgeq PRN Reason Stop Dose Admin Sodium Chloride 1,000 mls @ 999 mls/hr 04/13/18 15:34 04/13/18 16:32 Sodium Chloride 0.9% 1000 Ml IV 04/13/18 16:34 999 mls/hr .Q1H1M STA Administration Sodium Chloride Confirm 04/13/18 16:25 Sodium Chloride 0.9% 1000 Ml Administered 04/13/18 16:26 Dose 1,000 mls @ ud .ROUTE .STK-MED ONE Ondansetron HCl 4 mg 04/13/18 15:34 04/13/18 16:32 Zofran 4 Mg/2 Ml Vial IV 04/13/18 15:35 4 mg STAT ONE Administration Ondansetron HCl Confirm 04/13/18 16:25 Zofran 4 Mg/2 Ml Vial Administered 04/13/18 16:26 Dose 4 mg .ROUTE .STK-MED ONE Lab/Rad Data: Laboratory Result Diagrams 04/13/18 16:23 04/13/18 16:23 Laboratory Results 04/13/18 04/13/18 04/13/18 Range/Units 17:00 16:23 16:23 WBC (4.0-10.5) K/mm3 RBC (4.1-5.4) M/mm3 Hgb (12.0-16.0) gm/dl Hct (35-47) % MCV (78-100) fl MCH (26-32) pg MCHC (32-36) g/dl RDW (11.5-14.0) % Plt Count (150-450) K/mm3 MPV (6-9.5) fl Gran % (36.0-66.0) % Eos # (Auto) (0-0.5) Absolute Lymphs (auto) (1.0-4.6) Absolute Monos (auto) (0.0-1.3) Lymphocytes % (24.0-44.0) % Monocytes % (0.0-12.0) % Eosinophils % (0.00-5.0) % Basophils % (0.0-0.4) % Absolute Granulocytes (1.4-6.9) Basophils # (0-0.4) Sodium 141 (137-145) mmol/L Potassium 4.0 (3.5-5.1) mmol/L Chloride 104 (98-107) mmol/L Carbon Dioxide 27 (22-30) mmol/L Anion Gap 14.1 (5-15) MEQ/L BUN 12 (7-17) mg/dL Creatinine 0.98 (0.52-1.04) mg/dL Estimated GFR > 60.0 ML/MIN Glucose 89 (74-106) mg/dL Lactic Acid 1.1 (0.4-2.0) Calcium 9.3 (8.4-10.2) mg/dL Total Bilirubin 0.30 (0.2-1.3) mg/dL AST 21 (14-36) U/L ALT 10 (0-35) U/L Alkaline Phosphatase 95 (38-126) U/L Serum Total Protein 7.2 (6.3-8.2) g/dL Albumin 4.3 (3.5-5.0) g/dL Amylase 64 (30-110) U/L Lipase 193 (23-300) U/L Urine Color YELLOW (YELLOW) Urine Appearance CLEAR (CLEAR) Urine pH 7.0 (5-6) Ur Specific [place] 1.018 (1.005-1.025) Urine Protein NEGATIVE (Negative) Urine Ketones NEGATIVE (NEGATIVE) Urine Blood NEGATIVE (0-5) Jose/ul Urine Nitrite NEGATIVE (NEGATIVE) Urine Bilirubin NEGATIVE (NEGATIVE) Urine Urobilinogen NEGATIVE (0-1) mg/dL Ur Leukocyte Esterase NEGATIVE (NEGATIVE) Urine WBC (Auto) NONE (0-5) /HPF Urine RBC (Auto) NONE (0-2) /HPF U Epithel Cells (Auto) NONE (FEW) /HPF Urine Bacteria (Auto) NONE (NEGATIVE) /HPF Urine Mucus (Auto) SLIGHT (NEGATIVE) /HPF Urine Culture Reflexed NO (NO) Urine Glucose NEGATIVE (NEGATIVE) mg/dL 04/13/18 Range/Units 16:23 WBC 11.5 H (4.0-10.5) K/mm3 RBC 4.22 (4.1-5.4) M/mm3 Hgb 13.2 (12.0-16.0) gm/dl Hct 41.5 (35-47) % MCV 98.3 (78-100) fl MCH 31.3 (26-32) pg MCHC 31.8 L (32-36) g/dl RDW 15.3 H (11.5-14.0) % Plt Count 307 (150-450) K/mm3 MPV 9.9 H (6-9.5) fl Gran % 58.0 (36.0-66.0) % Eos # (Auto) 0.19 (0-0.5) Absolute Lymphs (auto) 3.84 (1.0-4.6) Absolute Monos (auto) 0.73 (0.0-1.3) Lymphocytes % 33.5 (24.0-44.0) % Monocytes % 6.4 (0.0-12.0) % Eosinophils % 1.7 (0.00-5.0) % Basophils % 0.4 (0.0-0.4) % Absolute Granulocytes 6.65 (1.4-6.9) Basophils # 0.05 (0-0.4) Sodium (137-145) mmol/L Potassium (3.5-5.1) mmol/L Chloride (98-107) mmol/L Carbon Dioxide (22-30) mmol/L Anion Gap (5-15) MEQ/L BUN (7-17) mg/dL Creatinine (0.52-1.04) mg/dL Estimated GFR ML/MIN Glucose (74-106) mg/dL Lactic Acid (0.4-2.0) Calcium (8.4-10.2) mg/dL Total Bilirubin (0.2-1.3) mg/dL AST (14-36) U/L ALT (0-35) U/L Alkaline Phosphatase (38-126) U/L Serum Total Protein (6.3-8.2) g/dL Albumin (3.5-5.0) g/dL Amylase (30-110) U/L Lipase (23-300) U/L Urine Color (YELLOW) Urine Appearance (CLEAR) Urine pH (5-6) Ur Specific [place] (1.005-1.025) Urine Protein (Negative) Urine Ketones (NEGATIVE) Urine Blood (0-5) Jose/ul Urine Nitrite (NEGATIVE) Urine Bilirubin (NEGATIVE) Urine Urobilinogen (0-1) mg/dL Ur Leukocyte Esterase (NEGATIVE) Urine WBC (Auto) (0-5) /HPF Urine RBC (Auto) (0-2) /HPF U Epithel Cells (Auto) (FEW) /HPF Urine Bacteria (Auto) (NEGATIVE) /HPF Urine Mucus (Auto) (NEGATIVE) /HPF Urine Culture Reflexed (NO) Urine Glucose (NEGATIVE) mg/dL - Progress Progress: unchanged Will see patient in: office Counseled pt/family regarding: lab results, need for follow-up, rad results - Departure Time of Disposition: 05:55 Departure Disposition: Home Clinical Impression: Abdominal pain, right lower quadrant Condition: Stable Critical Care Time: No Referrals: KATHRYN DICK [Primary Care Provider] - Additional Instructions: Pt had labs, and CT of abdomen done. UA was negative and clean. CT was negative with no nephrolitiasis, or appencitis, or any other pathology. Labs were normal. Pt was advised to f/u with gynecology and her PCP, as out pt.
[2018-04-13] MEDS ORDERED: Sodium Chloride 0.9% 1000 ML 1,000 ML ONE (16:25)
[2018-04-13] MEDS ORDERED: Zofran 4 MG/2 ML VIAL ONE (16:25)
[2018-04-13 16:27] LABS: BASOPHIL % 0.4 % (0.0-0.4); Basophil (Absolute #) 0.05 (0-0.4); Eosinophil % 1.7 % (0.00-5.0); Eosinophil (Absolute #) 0.19 (0-0.5); Granulocyte Absolute (ANC) 6.65 (1.4-6.9); Hematocrit 41.5 % (35-47); Hemoglobin 13.2 gm/dl (12.0-16.0); Lymphocyte (Absolute #) 3.84 (1.0-4.6); Lymphocytes % 33.5 % (24.0-44.0); Mean Cell Volume 98.3 fl (78-100); Mean Corpuscular Hemoglobin 31.3 pg (26-32); Mean Corpuscular Hgb Concent. 31.8 g/dl (32-36); Mean Platelet Volume 9.9 fl (6-9.5); Monocyte (Absolute #) 0.73 (0.0-1.3); Monocytes % 6.4 % (0.0-12.0); Platelet Count 307 K/mm3 (150-450); Red Blood Count 4.22 M/mm3 (4.1-5.4); Red Cell Distribution Width 15.3 % (11.5-14.0); White Blood Count 11.5 K/mm3 (4.0-10.5)
[2018-04-13 16:38] LABS: ALBUMIN 4.3 g/dL (3.5-5.0); ALKALINE PHOSPHATASE 95 U/L (38-126); AMYLASE 64 U/L (30-110); ANION GAP 14.1 MEQ/L (5-15); BLOOD UREA NITROGEN 12 mg/dL (7-17); CHLORIDE 104 mmol/L (98-107); Calcium 9.3 mg/dL (8.4-10.2); Carbon Dioxide 27 mmol/L (22-30); Creatinine 1 0.98 mg/dL (0.52-1.04); Glucose 89 mg/dL (74-106); LIPASE 193 U/L (23-300); SGOT/AST 21 U/L (14-36); SGPT/ALT 10 U/L (0-35); SODIUM 141 mmol/L (137-145); Total Protein 7.2 g/dL (6.3-8.2)
[2018-04-13 17:08] LABS: Appearance CLEAR (CLEAR); Bilirubin NEGATIVE (NEGATIVE); Blood NEGATIVE Ery/ul (0-5); Glucose NEGATIVE (NEGATIVE); Ketones NEGATIVE (NEGATIVE); Leukocyte Esterase NEGATIVE (NEGATIVE); Nitrite NEGATIVE (NEGATIVE); Protein,Urine Dip NEGATIVE (Negative); Specific Gravity 1.018 (1.005-1.025); Urobilinogen NEGATIVE mg/dL (0-1)
--- NOTE | 2018-04-13 17:31 | XRAY ---
Indication: Right lower abdominal pain. Multiple contiguous axial images obtained through the abdomen and pelvis using 80 cc Isovue 370 contrast only. Comparison: Noncontrast exam September 08, 2015. Lung bases demonstrate stable right lower lobe calcified granulomas. No infiltrate or effusion. Heart is not enlarged. Stomach distended with food/fluid. Noncontrasted stomach and bowel loops appear nonobstructed. Normal appendix. Again cholecystectomy and hysterectomy. No free fluid/air. Stable tiny right mid renal cortical cyst. Remaining liver, pancreas, spleen, adrenal glands, kidneys, ureters, bladder, and aorta appear normal in CT appearance and attenuation. No pathologic retroperitoneal lymphadenopathy. Osseous structures intact. No ventral or inguinal hernias. Impression: 1. Stable tiny right renal cyst. 2. Remaining CT abdomen/pelvis with contrast exam is negative. CTDI 34.85
== END 2018-04-13 18:17 | disposition home or self-care (01) ==
LOC: ED 15:08
DX: R10.31 Right lower quadrant pain (principal); Z79.899 Other long term (current) drug therapy
CPT/HCPCS: 36415; 74177; 80053; 81001; 82150; 83605; 83690; 85025; 96360; 96374; 99284; J2405

== ENCOUNTER 2018-06-27 09:59 | Day surgery (SDC) | payer MEDICARE ==
--- NOTE | 2018-06-27 08:11 | HP ---
DATE OF SURGERY: 06/27/2018 HISTORY OF PRESENT ILLNESS: The patient is a 38 year-old with frequent IV treatments, poor IV access, history of atrial fibrillation, arthritis, migraines and nerve conduction study (NCS). Poor peripheral access need for frequent IV treatments. I feel she is a candidate for Port-A-Cath placement. PAST MEDICAL HISTORY: Thyroid surgery in the past. PAST SURGICAL HISTORY: Three knee replacements, cholecystectomy, hysterectomy, section and breast reduction in the past. MEDICATIONS: Synthroid, Prilosec, Eliquis. ALLERGIES: SUMATRIPTAN, ASPIRIN. FAMILY HISTORY: Negative in regards to this problem. SOCIAL HISTORY: Half pack per day smoker. Denies alcohol abuse. REVIEW OF SYSTEMS: Twelve systems reviewed. Fibromyalgia and above mentioned other medical problems. No chest pain or palpitations other systems negative or noncontributory as above and per preadmission questionnaire. PHYSICAL EXAMINATION: GENERAL: No acute distress. HEENT: Sclerae nonicteric. NECK: No JVD. CHEST: Equal excursion, nonlabored breathing. CVS: Regular rate and rhythm. ABDOMEN: Soft. No peritoneal signs. EXTREMITIES: No significant edema. NEURO: Alert, oriented, moving extremities symmetrically. IMPRESSION: Poor peripheral access need for frequent IV treatments. I feel she is a candidate for Port-A-Cath placement. Shown the risk sheet, explained the procedure in detail but not limited to bleeding or infection, risk of thrombosis, pneumothorax, risk of arterial injury, remote risk of major venous tear, risk of aches, pains possible chronic in nature, risk of hematoma or seroma formation, risk of port infection possibly requiring removal, risk of port or catheter fracture or failure possibly requiring removal or other procedures but not limited to, will proceed with Port-A-Cath placement as an outpatient.
[~2018-06-27 09:59] MED LIST changes: -DIPRIVAN 200 MG/20 ML IV ONE; -Ketamine HCl 50 MG/ML IJ ONE; +Lactated Ringers 1,000 ML IV ONE; +XYLOCAINE 1% HCL 20 ML MDV ONE
[2018-06-27] MEDS ORDERED: Versed 2 MG/2 ML Injection IV ONE (10:00)
[2018-06-27] MEDS ORDERED: SUBLIMAZE 100 MCG/2 ML IV ONE (10:00)
[2018-06-27] MEDS ORDERED: DIPRIVAN 200 MG/20 ML IV ONE (10:00)
[2018-06-27] MEDS ORDERED: Lactated Ringers 0 ML IV ONE (10:07)
[2018-06-27] MEDS ORDERED: Lactated Ringers 1,000 ML IV SCH (10:30)
[2018-06-27] MEDS ORDERED: CEFAZOLIN 2 GM-D5W BAG** 2 GM/50 ML ML IV SCH (10:30)
[2018-06-27] MEDS ORDERED: XYLOCAINE 1% HCL 20 ML MDV ONE (12:32)
[2018-06-27] MEDS ORDERED: MORPHINE SULFATE 10 MG/ML ONE (13:09)
--- NOTE | 2018-06-27 13:39 | XRAY ---
Indication: Port placement. Intraoperative fluoroscopy was provided for 4 seconds. Single digital spot image submitted for interpretation demonstrates a left-sided Port-A-Cath with partially visualized catheter. Catheter tip presumed in the SVC. Correlate with intraoperative findings/report.
[2018-06-27 14:27] VITALS: O2SAT 98
[2018-06-27 14:46] VITALS: PULSE 70
[2018-06-27 14:47] VITALS: BP 140/80
--- NOTE | 2018-06-28 07:30 | OP ---
SURGERY DATE/TIME: 06/27/2018 1218 PREOPERATIVE DIAGNOSIS: History of arthritis. History of poor peripheral access, need for long-term central venous access for IV treatments. POSTOPERATIVE DIAGNOSIS: History of arthritis. History of poor peripheral access, need for long-term central venous access for IV treatments. PROCEDURE: Tunnel Port-A-Cath placement with C-arm fluoroscopy of left subclavian vein. SURGEON: Dr. Anthony Gutierrez. DRUG ROOM OPERATOR: Julienne Lu, Medical Student III. ANESTHESIA: MAC. ESTIMATED BLOOD LOSS: Minimal. INDICATIONS: As noted above. Risks and benefits explained in detail and not limited to and consent obtained. DESCRIPTION OF PROCEDURE AND FINDINGS: The patient is taken to the operating room. MAC anesthesia introduced. After official time out and no disagreement with planned procedure, prepped and draped in usual sterile fashion, in Trendelenburg position. 1% Lidocaine local infiltrated left subclavicular area. An 18 gauge cannulation needle inserted on first pass. Good dark nonpulsatile venous return. Guide wire was a little bit out of position and with slightly repositioning the needle slightly the guide wire passed much more smoothly and confirmed down the superior vena cava by C-arm fluoroscopy. This was followed by anesthetizing the tunnel track and port pocket. A transverse incision made. Inferior subcu pocket created on the chest wall. Given her obesity a small segment of adipose tissue was taken to allow the port to be more easily palpable and gone to a smaller peripheral port currently that was available at this facility. Port secured to the chest wall with Prolene suture x2, had additional 3-0 Vicryl in the posterior aspect of the port keeping it flat to the chest wall. At this point a dalila was made with the guide wire, cannulation stab wound allowing the catheter to be tunneled down from cannulation stab wound down to port pocket area. The dilator break away sheath easily passed over the guide wire. Catheter fed down break away sheath. The tip pulled back in distal superior vena cava at the top edge of the superior vena cava/atrial area with the catheter cut to appropriate length and then snapped on the port at the hub. The port aspirated dark, nonpulsatile venous return with ease, flushed with injectable saline provided by the staff. The lung retana were noted to be up bilaterally. Tip was in good location. Given her obesity there was a little bit of an angle coming around from the chest into the subclavian vein but there was no evidence of any resistance on flushing and aspirating it. It was felt that this is as good of position as possible given her body habitus. Again segment of fat pad had been taken out to allow the skin to be closer to easier port access for staff accessing the port. Good hemostasis is noted. Subcu closed with 3-0 Vicryl, skin closed with 4-0 Vicryl. Cannulation stab wound closed with 4-0 Vicryl. Steri-Strips and sterile dressing applied. The patient tolerated the procedure well. There were no immediate complications. The last film had been taken confirming the catheter snapped on the port and tip in good location. Lungs retana noted to be up bilaterally. It was felt that no further x-rays are necessary at this point.
== END 2018-06-27 14:45 | disposition home or self-care (01) ==
LOC: SDC 09:59
PROVIDERS: ATTEND Surgery
DX: Z45.2 Encounter for adjustment and management of vascular access device (principal); I48.91 Unspecified atrial fibrillation; Z79.01 Long term (current) use of anticoagulants; M19.90 Unspecified osteoarthritis, unspecified site; Z72.0 Tobacco use
CPT/HCPCS: 77001; J0690; J1642; J2250; J2270; J2704; J3010

== ENCOUNTER 2018-11-11 00:26 | Emergency (ER) | payer MEDICARE ==
[2018-11-11 00:40] VITALS: BP 123/82; O2SAT 97
--- NOTE | 2018-11-11 00:59 | ERPHSYRPT ---
- History of Present Illness Time Seen by Provider: 11/11/18 00:50 Source: patient Exam Limitations: no limitations Patient Subjective Stated Complaint: pt is alert and oriented. pt comes in with left knee pain. pt states that she was getting out of the shower at 1600 yesterday (11/10/18) when she heard and felt a pop, pt states a short time later she began having pain. pt states that it hurts to bend her leg or put any weight on it. pt does have mild swelling noted to her left knee when compared to right knee. pt states she has had bilat knee replacements with the right knee being replaced x2. pedal pulses strong and equal, cap refil <3 sec. Triage Nursing Assessment: see above Physician History: 38-year-old white female arrives with complaint of pain in her left knee symptoms since 4:00 this afternoon. According to the patient she was in the bathtub and felt her knee pop she is having pain in her left knee she states she has pain with any movement of her left knee. Past medical history includes migraines, angina, arrhythmia, high blood pressure , sleep apnea, hypothyroidism, thyroid cancer, arthritis, fibromyalgia, irritable bowel, arthritis, depression, endometriosis patient apparently had multiple knee surgeries and has had bilateral knees replaced Past surgical history includes cardiac catheter, cholecystectomy, joint replacement, hysterectomy, j breast reduction, bilateral total knees, gallbladder and partial hysterectomy Method of Injury: other (ffelt knee pop when getting out of the bathtub) Occurred: this afternoon (4:00 this afternoon) Quality: constant, aching Severity of Pain-Max: moderate Severity of Pain-Current: moderate Lower Extremities Pain: knee: left Modifying Factors: Improves With: movement (pain with movement left knee). Worsens With: other Associated Symptoms: unable to bear weight Allergies/Adverse Reactions: sumatriptan [From Imitrex] Allergy (Severe, Verified 10/14/18 12:33) heart spasms sumatriptan succinate [From Imitrex] Allergy (Severe, Verified 10/14/18 12:33) heart spasms aspirin Allergy (Intermediate, Verified 10/14/18 12:33) bleeding diphenhydramine [From Benadryl] Allergy (Intermediate, Verified 10/14/18 12:33) Hives duloxetine [From Cymbalta] Allergy (Verified 11/11/18 00:41) Tightness in Chest hydromorphone [From Dilaudid] Allergy (Verified 11/11/18 00:41) morphine Allergy (Verified 11/11/18 00:41) Hives Home Medications: Levothyroxine Sodium 150 Mcg [Synthroid 150 Mcg] 175 mcg PO DAILY 07/09/16 [History] Omeprazole 20 MG [Prilosec 20 mg] 20 mg PO DAILY 12/27/16 [History] Albuterol Sulfate [Ventolin Hfa] 8 gm IH Q4HPRN PRN 06/20/18 [History] Midodrine HCl 5 mg [Proamatine 5 mg] 5 mg PO DAILY 06/20/18 [History] Nitroglycerin 0.4 mg (Ed) [Nitrostat 0.4 MG (ED)] 0.4 mg SL STAT 08/12/18 [History] Hx Tetanus, Diphtheria Vaccination/Date Given: Yes Hx Influenza Vaccination/Date Given: Yes Hx Pneumococcal Vaccination/Date Given: Yes Immunizations Up to Date: Yes - Review of Systems Constitutional: No Fever, No Chills Eyes: No Symptoms Ears, Nose, & Throat: No Symptoms Respiratory: No Cough, No Dyspnea Cardiac: No Chest Pain, No Edema, No Syncope Abdominal/Gastrointestinal: No Abdominal Pain, No Nausea, No Vomiting, No Diarrhea Genitourinary Symptoms: No Dysuria Musculoskeletal: Arthralgias, Other (left knee pain) Skin: No Rash Neurological: No Dizziness, No Focal Weakness, No Sensory Changes Psychological: No Symptoms Endocrine: No Symptoms All Other Systems: Reviewed and Negative - Past Medical History Pertinent Past Medical History: Yes Neurological History: Migraines ENT History: No Pertinent History Cardiac History: Angina, Arrhythmia, Hypertension Respiratory History: Sleep Apnea Endocrine Medical History: Hypothyroidism Musculoskeletal History: Arthritis, Fibromyalgia GI Medical History: GERD, Irritable Bowel History: No Pertinent History Psycho-Social History: Anxiety, Depression Female Reproductive Disorders: Endometriosis Other Medical History: Pt notes extensive surgical history of R knee. 6 scopes, ACL repair. Notes injured R knee at age 14. Right and left knee replaced. [facility]. NEUROGENIC SYNCOPAL EPISODES. A-Fib - Past Surgical History Past Surgical History: Yes Neuro Surgical History: No Pertinent History Cardiac: Cardiac Catheterization Respiratory: No Pertinent History Gastrointestinal: Cholecystectomy Genitourinary: No Pertinent History Musculoskeletal: Joint Replacement, Orthopedic Surgery Female Surgical History: Hysterectomy, Tubal Ligation Other Surgical History: breast reduction, total knee rt, partial knee rt, 8-9 arthroscopies rt knee, ACL repairs x3 rt knee, thyroidectomy. TOTAL LEFT KNEE 03/08/17. port placed 05/2018 - Social History Smoking Status: Current every day smoker How long have you smoked: 24 years Exposure to second hand smoke: Yes Drug Use: none Patient Lives Alone: No - Female History Hx Now: No (hysterectomy) - Nursing Vital Signs Nursing Vital Signs: Initial Vital Signs Temperature 97.6 F 11/11/18 00:33 Pulse Rate 75 11/11/18 00:33 Respiratory Rate 18 11/11/18 00:33 Blood Pressure 123/82 11/11/18 00:33 O2 Sat by Pulse Oximetry 97 11/11/18 00:33 Pain Scale Pain Intensity 8 - Physical Exam General Appearance: mild distress, alert Eyes, Ears, Nose, Throat Exam: moist mucous membranes Neck Exam: non-tender, supple Cardiovascular/Respiratory Exam: chest non-tender, normal breath sounds, regular rate/rhythm, no respiratory distress Gastrointestinal/Abdominal Exam: non-tender, guarding Back Exam: normal inspection, No vertebral tenderness Hips Exam: bilateral: non-tender, normal inspection, normal range of motion, no evidence of injury Legs Exam: right leg: normal range of motion, bilateral leg: non-tender, normal inspection, no evidence of injury Knees Exam: right knee: non-tender, normal inspection, normal range of motion, no evidence of injury, other (left knee tender with palpation anteriorly, decreased range of motion left knee secondary to pain. poatient with edema left knee inferior to patella) Ankle Exam: bilateral ankle: non-tender, normal inspection, normal range of motion, no evidence of injury Foot Exam: bilateral foot: non-tender, normal inspection, normal range of motion , no evidence of injury DTR - Lower Extremities Exam: ankle (R): 2+, ankle (L): 2+ Neuro/Tendon Exam: normal sensation, normal motor functions Mental Status Exam: alert, oriented x 3, cooperative Skin Exam: normal color, warm, dry SpO2 Interpretation: normal (97%) SpO2: 97 Ordered Tests: Active Orders 24 hr Category Date Time Status Crutches STAT Care 11/11/18 01:10 Active Immobilizer STAT Care 11/11/18 01:10 Active KNEE (1 OR 2 VIEW) Stat Exams 11/11/18 00:54 Ordered Medication Summary Generic Name Dose Route Start Last Admin Trade Name Megan PRN Reason Stop Dose Admin Hydrocodone Bitart/Acetaminophen 1 tab 11/11/18 01:17 [place] 5/325 Mg PO 11/11/18 01:18 STAT ONE Hydrocodone Bitart/Acetaminophen 1 tab 11/11/18 01:18 [place] 5/325 Mg PO 11/11/18 01:19 SENT HOME W/ PATIENT ONE - Progress Progress: improved Progress Note: 11/11/18 01:18 38-year-old white female with history of bilateral knee replacements arrives with complaint of pain and swelling to her left knee symptoms since getting out of the bathtub yesterday at 4:00 PM. On physical examination patient has some mild edema inferior to her patella anteriorly she has tenderness with palpation anterior left knee she has decreased range of motion to the left knee secondary to pain she has no medial or lateral joint line tenderness. Patient's x-ray of her left knee hardware is in place no fractures are noted no subluxation is noted((status post total left knee arthroplasty) Will go ahead and give patient [place] tablet one orally Also one to go home. Patient states she has tramadol at home that she can take after this. Will place her left knee immobilizer and give patient crutches. She is to place cold packs on her left knee 24-48 hours his weightbearing as tolerated and use crutches. She is to followup with Dr. Brandt. - Departure Departure Disposition: Home Clinical Impression: history of left total knee arthroplasty Left knee pain Qualifiers: Chronicity: acute Qualified Code(s): M25.562 - Pain in left knee Condition: Fair Critical Care Time: No Referrals: KATRHYN DICK [Primary Care Provider] - Additional Instructions: Return home. Ice and elevate left knee 24-48 hours. Knee immobilizer. Crutches weightbearing as tolerated. One [place] tablet will be sent home with you he may take this after which you can resume tramadol prescribed by Dr. Brandt. Followup with Dr. Brandt. Return for acute distress or for severe symptoms.
[2018-11-11] MEDS ORDERED: NORCO 5/325 MG PO ONE ×2 (01:17→01:18)
[2018-11-11] MEDS ORDERED: NORCO 5/325 MG ONE (01:44)
[2018-11-11 01:51] VITALS: PULSE 69
--- NOTE | 2018-11-11 09:27 | XRAY ---
Indication: Pain 2 weeks. Comparison: March 23, 2017. AP/crosstable lateral left knee again demonstrates osteopenia and total knee arthroplasty with intact articulation/prosthesis. No new/acute findings.
== END 2018-11-11 02:00 | disposition home or self-care (01) ==
LOC: ED 00:26
DX: M25.562 Pain in left knee (principal); Z96.652 Presence of left artificial knee joint; I10 Essential (primary) hypertension; G47.30 Sleep apnea, unspecified; E03.9 Hypothyroidism, unspecified; M19.90 Unspecified osteoarthritis, unspecified site; K21.9 Gastro-esophageal reflux disease without esophagitis; F41.9 Anxiety disorder, unspecified; F32.9 Major depressive disorder, single episode, unspecified; Z79.899 Other long term (current) drug therapy
CPT/HCPCS: 73560; 99283; L1830; A9270-GY

== ENCOUNTER 2019-03-29 11:35 | Emergency (ER) | payer MEDICARE, OTHER ==
[2019-03-29 11:55] VITALS: BP 148/78; PULSE 75; O2SAT 98
[2019-03-29] MEDS ORDERED: OXYCODONE-ACETAMINOPHEN 10-325 PO STA (11:58)
[2019-03-29] MEDS ORDERED: OXYCODONE-ACETAMINOPHEN 10-325 ONE (12:02)
--- NOTE | 2019-03-29 12:04 | ERPHSYRPT ---
- History of Present Illness Time Seen by Provider: 03/29/19 11:53 Source: patient Exam Limitations: no limitations Patient Subjective Stated Complaint: Just [employer] " I was grocery shopping and slipped and fell causing injury to knee and right hip. I did not hit my head or have LOC". Triage Nursing Assessment: Pt presents to ER with complaints of right knee and right hip pain following a recent fall. Has open small abrasion noted to right knee, bleeding controlled. States pain in right hip is 8/10 scale. Hx of tay knee replacements. Full ROM of hip and knee. States it hurts to move though. Pt is alert and oriented x 3. Resp easy and unlabored at this time. Lung sounds clear throughout. Denies n/v/d. Pt has impaired gait but is able to walk with assistance of ER staff or furniture. Denies head injury or LOC. Physician History: 39 years old female with history of right knee replacement visit in the ER on her she tripped while at the grocery store, landed on the right knee and also jjarred right hip. She was able to get up but is having moderate to severe intensity sharp pain right hip and knee, accurately with minimal moment and better with being still. Associated with abrasion right knee. No back pain. No pain moments of ankle/foot. no injury anywhere else. Denies any chest pain palpitations or shortness of breath/dizziness or lightheadedness before or after the fall. Occurred: just prior to arrival Quality: sharpness Severity of Pain-Max: moderate Severity of Pain-Current: moderate Lower Extremities Pain: hip: right, knee: right Modifying Factors: Improves With: immobilization, movement Associated Symptoms: none Allergies/Adverse Reactions: sumatriptan [From Imitrex] Allergy (Severe, Verified 03/29/19 11:56) heart spasms sumatriptan succinate [From Imitrex] Allergy (Severe, Verified 03/29/19 11:56) heart spasms aspirin Allergy (Intermediate, Verified 03/29/19 11:56) bleeding diphenhydramine [From Benadryl] Allergy (Intermediate, Verified 03/29/19 11:56) Hives duloxetine [From Cymbalta] Allergy (Verified 03/29/19 11:56) Tightness in Chest hydromorphone [From Dilaudid] Allergy (Verified 03/29/19 11:56) morphine Allergy (Verified 03/29/19 11:56) Hives Home Medications: Levothyroxine Sodium 150 Mcg [Synthroid 150 Mcg] 200 mcg PO DAILY 07/09/16 [History] Omeprazole 20 MG [Prilosec 20 mg] 20 mg PO DAILY 12/27/16 [History] Albuterol Sulfate [Ventolin Hfa] 8 gm IH Q4HPRN PRN 06/20/18 [History] Nitroglycerin 0.4 mg (Ed) [Nitrostat 0.4 MG (ED)] 0.4 mg SL STAT PRN 08/12 [History] Dextroamphetamine/Amphetamine [Adderall 20 mg Tablet] 20 mg PO BID 03/29/19 [ History] Hx Tetanus, Diphtheria Vaccination/Date Given: Yes Hx Influenza Vaccination/Date Given: Yes Hx Pneumococcal Vaccination/Date Given: No Immunizations Up to Date: Yes - Review of Systems Constitutional: No Symptoms Eyes: No Symptoms Ears, Nose, & Throat: No Symptoms Respiratory: No Symptoms Cardiac: No Symptoms Abdominal/Gastrointestinal: No Symptoms Genitourinary Symptoms: No Symptoms Musculoskeletal: Joint Redness, Joint Pain, Joint Swelling Skin: No Symptoms Neurological: No Symptoms Psychological: No Symptoms Endocrine: No Symptoms Hematologic/Lymphatic: No Symptoms Immunological/Allergic: No Symptoms - Past Medical History Pertinent Past Medical History: Yes Neurological History: Migraines ENT History: No Pertinent History Cardiac History: Angina, Arrhythmia, Hypertension Respiratory History: Sleep Apnea Endocrine Medical History: Hypothyroidism Musculoskeletal History: Arthritis, Fibromyalgia GI Medical History: GERD, Irritable Bowel History: No Pertinent History Psycho-Social History: Anxiety, Depression Female Reproductive Disorders: Endometriosis Other Medical History: ADHD, Pt notes extensive surgical history of R knee. 6 scopes, ACL repair. Notes injured R knee at age 14. Right and left knee replaced. [facility]. NEUROGENIC SYNCOPAL EPISODES. A-Fib - Past Surgical History Past Surgical History: Yes Neuro Surgical History: No Pertinent History Cardiac: Cardiac Catheterization Respiratory: No Pertinent History Gastrointestinal: Cholecystectomy Genitourinary: No Pertinent History Musculoskeletal: Joint Replacement, Orthopedic Surgery Female Surgical History: Hysterectomy, Tubal Ligation Other Surgical History: breast reduction, total knee rt, partial knee rt, 8-9 arthroscopies rt knee, ACL repairs x3 rt knee, thyroidectomy. TOTAL LEFT KNEE 10/30/17. port placed 05/2018 - Social History Smoking Status: Current every day smoker How long have you smoked: since 14yo Exposure to second hand smoke: No Drug Use: marijuana Patient Lives Alone: No - Female History Hx Last Menstrual Period: hysterectomy Hx Now: No - Nursing Vital Signs Nursing Vital Signs: Initial Vital Signs Temperature 97.5 F 03/29/19 11:45 Pulse Rate 75 03/29/19 11:45 Respiratory Rate 18 03/29/19 11:45 Blood Pressure 148/78 03/29/19 11:45 O2 Sat by Pulse Oximetry 98 03/29/19 11:45 Pain Scale Pain Intensity 8 - Physical Exam General Appearance: no apparent distress Eyes, Ears, Nose, Throat Exam: normal ENT inspection Neck Exam: normal inspection, non-tender, supple, full range of motion Cardiovascular/Respiratory Exam: chest non-tender, normal breath sounds, regular rate/rhythm Gastrointestinal/Abdominal Exam: non-tender, soft, no organomegaly Back Exam: normal inspection, normal range of motion, No vertebral tenderness Hips Exam: right: pain, soft tissue tenderness Knees Exam: right knee: bone tenderness, pain, soft tissue tenderness, swelling Neuro/Tendon Exam: normal sensation Mental Status Exam: alert, oriented x 3, cooperative Skin Exam: normal color, warm SpO2 Interpretation: normal SpO2: 98 O2 Delivery: Room Air - Course Nursing assessment & vital signs reviewed: Yes Ordered Tests: Active Orders 24 hr Category Date Time Status HIP UNI (2V) INCL PEL IF DONE Stat Exams 03/29/19 12:27 Completed KNEE (3 VIEWS) Stat Exams 03/29/19 12:28 Completed Medication Summary Discontinued Medications Generic Name Dose Route Start Last Admin Trade Name Megan PRN Reason Stop Dose Admin Oxycodone/Acetaminophen 1 tab 03/29/19 11:58 03/29/19 12:04 Oxycodone-Acetaminophen 10-325 PO 03/29/19 11:59 1 tab STAT STA Administration Oxycodone/Acetaminophen Confirm 03/29/19 12:02 Oxycodone-Acetaminophen 10-325 Administered 03/29/19 12:03 Dose 1 tab .ROUTE .STK-MED ONE - Progress Progress: improved, pain not gone completely, re-examined Progress Note: rule out fracture dislocation and knee/hip. Patient feeling better on reevaluation after pain medications. I believe she has contusion of the knee and some strain of muscles. Recommended ibuprofen and outpatient followup. Discussed signs and symptoms are worsening needed return to ER but she seemed understanding. Stable for discharge. 03/29/19 13:10 Counseled pt/family regarding: diagnosis, need for follow-up, rad results - Departure Departure Disposition: Home Clinical Impression: Contusion, knee Qualifiers: Encounter type: initial encounter Laterality: right Qualified Code(s): S80.01XA - Contusion of right knee, initial encounter Hip pain Qualifiers: Laterality: right Qualified Code(s): M25.551 - Pain in right hip Condition: Stable Critical Care Time: No Referrals: ANA GTZ [Primary Care Provider] - Follow Up with PCP/3 days Instructions: Contusion (DC) Additional Instructions: take Tylenol/ibuprofen as needed for pain. Followup with primary care physician for reevaluation in 3-4 days. Return to ER for any worsening. ambulate with crutches Prescriptions: Ibuprofen 600 mg PO Q6HPRN PRN 10 Days #20 tablet PRN Reason: Pain
--- NOTE | 2019-03-29 12:38 | XRAY ---
Indication: Pain following fall. Comparison: April 20, 2017. 3 views of the right knee demonstrates interval total knee arthroplasty revision again with intact articulation/prosthesis. New punctate foreign bodies adjacent to the medial tibial plateau. No other bony, articular, or soft tissue abnormalities.
--- NOTE | 2019-03-29 12:40 | XRAY ---
Indication: Right hip/pelvis pain following fall. Comparison: None AP pelvis and 2 views of the right hip demonstrates tiny calcification overlying left ischial tuberosity either bone island, phlebolith, or gluteal calcified granuloma. No other bony, articular, or soft tissue abnormalities.
[2019-03-29] MEDS ORDERED: BACIGUENT PACKET TP ONE (13:18)
== END 2019-03-29 13:49 | disposition home or self-care (01) ==
LOC: ED 11:35
DX: S80.01XA Contusion of right knee, initial encounter (principal); M25.551 Pain in right hip; W01.0XXA Fall on same level from slipping, tripping and stumbling without subsequent striking against object, initial encounter; Y92.512 Supermarket, store or market as the place of occurrence of the external cause; Z79.899 Other long term (current) drug therapy; Z96.651 Presence of right artificial knee joint; Z96.652 Presence of left artificial knee joint
CPT/HCPCS: 73502; 73562; 99284; A9270-GY

== ENCOUNTER → 2020-08-05 | Emergency (ER) | payer MEDICARE ==
[2012-02-28 15:35] VITALS: BP 106/63
== END ==
LOC: ED 20:23
DX: Z53.9 Procedure and treatment not carried out, unspecified reason (principal)

== ENCOUNTER 2022-01-25 04:13 | Emergency (ER) | payer MEDICARE ==
--- NOTE | 2022-01-25 04:30 | ERPHSYRPT ---
- History of Present Illness Time Seen by Provider: 01/25/22 04:25 Source: patient Exam Limitations: no limitations Physician History: Pt was stung at least twice by a hornet or wood bee around midnight and has tried ice and calamine but nothing is relieving the pain which is 9 out of ten. She thinks that the stinger came out when she pulled off her sock. No other areas of concern. Not short of breath - No hx of allergy to stings. No rash or Urticaria. chest clear without wheezes or stridor. Pharynx clear without swelling, swallowing OK. Tape used to pull out any remaining stingers and area scraped as well - no additional stingers found. area is nontender but with some swelling and localized erythema. .pt states that she can take benadryl OK and that is an error on her allergy list. Pt states joy dilaudid OK Timing/Duration: today Severity: moderate Modifying Factors: Improves With: nothing Associated Symptoms: denies symptoms, No shortness of breath, No rash Allergies/Adverse Reactions: sumatriptan [From Imitrex] Allergy (Severe, Verified 01/25/22 04:30) heart spasms sumatriptan succinate [From Imitrex] Allergy (Severe, Verified 01/25/22 04:30) heart spasms aspirin Allergy (Intermediate, Verified 01/25/22 04:30) bleeding duloxetine [From Cymbalta] Allergy (Verified 01/25/22 04:30) Tightness in Chest morphine Allergy (Verified 01/25/22 04:30) Hives Home Medications: Dextroamphetamine/Amphetamine [Adderall 20 mg Tablet] 30 mg PO BID 03/29/19 [History] Hx Tetanus, Diphtheria Vaccination/Date Given: Yes Hx Influenza Vaccination/Date Given: Yes Hx Pneumococcal Vaccination/Date Given: No - Review of Systems Constitutional: No Fever, No Chills Eyes: No Symptoms Ears, Nose, & Throat: No Symptoms Respiratory: No Cough, No Dyspnea Cardiac: No Chest Pain, No Edema, No Syncope Abdominal/Gastrointestinal: No Abdominal Pain, No Nausea, No Vomiting, No Diarrhea Genitourinary Symptoms: No Dysuria Musculoskeletal: No Back Pain, No Neck Pain Skin: Other (beestings), No Rash Neurological: No Dizziness, No Focal Weakness, No Sensory Changes Psychological: No Symptoms Endocrine: No Symptoms Hematologic/Lymphatic: No Symptoms Immunological/Allergic: No Symptoms All Other Systems: Reviewed and Negative - Past Medical History Pertinent Past Medical History: Yes Neurological History: Migraines ENT History: No Pertinent History Cardiac History: Angina, Arrhythmia, Hypertension Respiratory History: Sleep Apnea Endocrine Medical History: Hypothyroidism Musculoskeletal History: Arthritis, Fibromyalgia GI Medical History: GERD, Irritable Bowel History: No Pertinent History Psycho-Social History: Anxiety, Depression Female Reproductive Disorders: Endometriosis Other Medical History: ADHD, Pt notes extensive surgical history of R knee. 6 scopes, ACL repair. Notes injured R knee at age 14. Right and left knee replaced. [facility]. NEUROGENIC SYNCOPAL EPISODES. A-Fib - Past Surgical History Past Surgical History: Yes Neuro Surgical History: No Pertinent History Cardiac: Cardiac Catheterization Respiratory: No Pertinent History Gastrointestinal: Cholecystectomy Genitourinary: No Pertinent History Musculoskeletal: Joint Replacement, Orthopedic Surgery Female Surgical History: Hysterectomy, Tubal Ligation Other Surgical History: breast reduction, total knee rt, partial knee rt, 8-9 arthroscopies rt knee, ACL repairs x3 rt knee, thyroidectomy. TOTAL LEFT KNEE 03/08/17. port placed 05/2018 - Social History Smoking Status: Current every day smoker How long have you smoked: since 14yo Exposure to second hand smoke: No Drug Use: marijuana Patient Lives Alone: No - Nursing Vital Signs Nursing Vital Signs: Initial Vital Signs Temperature 97.2 F 01/25/22 04:18 Pulse Rate 79 01/25/22 04:18 Respiratory Rate 18 01/25/22 04:18 Blood Pressure 153/107 01/25/22 04:18 O2 Sat by Pulse Oximetry 100 01/25/22 04:18 Pain Scale Pain Intensity 3 - Physical Exam General Appearance: no apparent distress, alert Eye Exam: PERRL/EOMI, eyes nml inspection Ears, Nose, Throat Exam: normal ENT inspection, TMs normal, pharynx normal, moist mucous membranes, No pharyngeal erythema Neck Exam: normal inspection, non-tender, supple, full range of motion Respiratory Exam: normal breath sounds, lungs clear, airway intact, No respiratory distress, No accessory muscle use, No crackles/rales, No rhonchi, No wheezing, No stridor Cardiovascular Exam: regular rate/rhythm, normal heart sounds, normal peripheral pulses Gastrointestinal/Abdomen Exam: soft, normal bowel sounds, No tenderness, No mass Pelvic Exam: deferred Rectal Exam: deferred Back Exam: normal inspection, normal range of motion, No CVA tenderness, No vertebral tenderness Extremity Exam: normal inspection, normal range of motion, pelvis stable Neurologic Exam: alert, oriented x 3, cooperative, normal mood/affect, nml cerebellar function, nml station & gait, sensation nml, No motor deficits Skin Exam: normal color, warm, dry, No rash Lymphatic Exam: No adenopathy SpO2 Interpretation: normal SpO2: 100 O2 Delivery: Room Air - Course Nursing assessment & vital signs reviewed: Yes Ordered Tests: Active Orders 24 hr Category Date Time Status IV Insertion STAT Care 01/25/22 04:39 Active Medication Summary Generic Name Dose Route Start Last Admin Trade Name Freq PRN Reason Stop Dose Admin Sodium Chloride 1,000 mls @ 100 mls/hr 01/25/22 04:45 01/25/22 04:59 Sodium Chloride 0.9% 1000 Ml IV 02/24/22 04:44 100 mls/hr .Q10H KEVIN Administration Discontinued Medications Generic Name Dose Route Start Last Admin Trade Name Freq PRN Reason Stop Dose Admin Ammonia (Aromatic Spirit) Confirm 01/25/22 04:33 Ammonia 1 Amp Pckt Administered 01/25/22 04:34 Dose 1 amp IH .STK-MED ONE Ammonia (Aromatic Spirit) 1 amp 01/25/22 04:39 01/25/22 04:40 Ammonia 1 Amp Pckt IH 01/25/22 04:40 1 amp STAT ONE Administration Methylprednisolone Sodium 0 mg 01/25/22 04:36 01/25/22 04:56 Succinate 125 mg/ Sterile IV 01/25/22 04:37 125 mg Water 2 ml STAT ONE Administration Diphenhydramine HCl 25 mg 01/25/22 04:38 01/25/22 04:56 Diphenhydramine Hcl 50 Mg/Ml Vial IV 01/25/22 04:39 25 mg STAT ONE Administration Diphenhydramine HCl Confirm 01/25/22 04:50 Diphenhydramine Hcl 50 Mg/Ml Vial Administered 01/25/22 04:51 Dose 50 mg .ROUTE .STK-MED ONE Hydromorphone HCl 1 mg 01/25/22 04:37 01/25/22 04:56 Hydromorphone 1 Mg/1ml Inj 1 Mg/Ml Syringe IV 01/25/22 04:38 1 mg STAT ONE Administration Hydromorphone HCl Confirm 01/25/22 04:50 Hydromorphone 1 Mg/1ml Inj 1 Mg/Ml Syringe Administered 01/25/22 04:51 Dose 1 mg .ROUTE .STK-MED ONE Lidocaine Confirm 01/25/22 04:36 Lidocaine Hcl 1 Patch Patch Administered 01/25/22 04:37 Dose 1 patch .ROUTE .STK-MED ONE Lidocaine 1 patch 01/25/22 04:36 01/25/22 05:01 Lidocaine Hcl 1 Patch Patch TOP 01/25/22 04:37 1 patch STAT ONE Administration Methylprednisolone Sodium Succinate Confirm 01/25/22 04:51 Methylprednis Sod Succ 125 Mg/2 Ml Vial Administered 01/25/22 04:52 Dose 125 mg .ROUTE .STK-MED ONE Ondansetron HCl 4 mg 01/25/22 04:38 01/25/22 04:56 Ondansetron Hcl 4 Mg/2 Ml Vial IV 01/25/22 04:39 4 mg STAT ONE Administration Ondansetron HCl Confirm 01/25/22 04:50 Ondansetron Hcl 4 Mg/2 Ml Vial Administered 01/25/22 04:51 Dose 4 mg .ROUTE .STK-MED ONE Sterile Water Confirm 01/25/22 04:50 Water For Injection,Sterile 10 Ml Vial Administered 01/25/22 04:51 Dose 10 ml IJ .STK-MED ONE - Progress Progress: improved, re-examined Progress Note: 01/25/22 05:38 improved considerably after Tx NO resp symptoms, No rash, just local swelling Counseled pt/family regarding: diagnosis, need for follow-up - Departure Departure Disposition: Home Clinical Impression: Insect stings Condition: Good Critical Care Time: No Referrals: ANA GTZ NP [Primary Care Provider] - Follow up/PCP as directed Instructions: Insect Bites and Stings (DC) Additional Instructions: follow-up with your Wednesday to recheck foot, return meantime if symptoms recur, swelling, redness, drainage, short of breath, rash, trouble swallowing or any other concerns. Try to keep foot elevated. Follow-up with your also for elevated blood pressure. Prescriptions: Methylprednisolone Packet [Medrol Dosepack] 4 mg PO UD #30 packet
[2022-01-25] MEDS ORDERED: AMMONIA AROMATIC IH ONE ×2 (04:33→04:39)
[2022-01-25] MEDS ORDERED: solu-MEDROL 125 MG, Sterile H2O 10 ml 2 ML IV ONE ×2 (04:36)
[2022-01-25] MEDS ORDERED: Lidoderm Patch 5% TOP ONE (04:36)
[2022-01-25] MEDS ORDERED: Lidoderm Patch 5% ONE (04:36)
[2022-01-25] MEDS ORDERED: Hydromorphone 1 mg/ml Injection IV ONE (04:37)
[2022-01-25] MEDS ORDERED: Zofran 4 MG/2 ML VIAL IV ONE (04:38)
[2022-01-25] MEDS ORDERED: BENADRYL 50 MG/ML IV ONE (04:38)
[2022-01-25] MEDS ORDERED: Sodium Chloride 0.9% 1000 ML 1,000 ML IV SCH (04:45)
[2022-01-25] MEDS ORDERED: BENADRYL 50 MG/ML ONE (04:50)
[2022-01-25] MEDS ORDERED: Zofran 4 MG/2 ML VIAL ONE (04:50)
[2022-01-25] MEDS ORDERED: Sterile H2O 10 ml IJ ONE (04:50)
[2022-01-25] MEDS ORDERED: Hydromorphone 1 mg/ml Injection ONE (04:50)
[2022-01-25] MEDS ORDERED: solu-MEDROL ONE (04:51)
[2022-01-25] MEDS ORDERED: Sodium Chloride 0.9% 1000 ML 1,000 ML ONE (04:58)
[2022-01-25 05:48] VITALS: BP 137/93; PULSE 60; O2SAT 96
== END 2022-01-25 05:49 | disposition home or self-care (01) ==
LOC: ED 04:13
DX: T63.441A Toxic effect of venom of bees, accidental (unintentional), initial encounter (principal); R60.0 Localized edema; I10 Essential (primary) hypertension; Z72.0 Tobacco use; Z79.899 Other long term (current) drug therapy; Z79.52 Long term (current) use of systemic steroids
CPT/HCPCS: 36000; 96374; 96375; 99284; J1170; J1200; J2405; J2930; A9270-GY

== ENCOUNTER 2024-06-22 15:19 | Emergency (ER) | payer MEDICARE ==
--- NOTE | 2024-06-22 15:24 | ERPHSYRPT ---
- History of Present Illness Time Seen by Provider: 06/22/24 15:24 Source: patient Exam Limitations: no limitations Physician History: This is a 44-year-old overweight white female patient of nurse practitioner Juan Miguel who arrives by private vehicle accompanied by family for evaluation of a right knee injury that occurred over a week ago. Patient has been using plain Tylenol and this has not been helpful. She states that her pain is actually getting worse. Patient denies chest pain. Patient denies shortness of breath. Patient has a history of migraine headaches, hypertension, arrhythmia, gastroesophageal reflux disease, fibromyalgia, irritable bowel syndrome and anxiety. Method of Injury: fell Occurred: other (Over 1 week ago) Quality: constant, aching Severity of Pain-Max: moderate Severity of Pain-Current: moderate Lower Extremities Pain: knee: right Modifying Factors: Improves With: movement Associated Symptoms: other (Can bear weight and hurts to do so) Allergies/Adverse Reactions: sumatriptan [From Imitrex] Allergy (Severe, Verified 06/22/24 15:28) heart spasms sumatriptan succinate [From Imitrex] Allergy (Severe, Verified 06/22/24 15:28) heart spasms aspirin Allergy (Intermediate, Verified 06/22/24 15:28) bleeding diphenhydramine [From Benadryl] Allergy (Verified 06/22/24 15:28) Hives duloxetine [From Cymbalta] Allergy (Verified 06/22/24 15:28) Tightness in Chest morphine Allergy (Verified 06/22/24 15:28) Hives Hx Tetanus, Diphtheria Vaccination/Date Given: Yes Hx Influenza Vaccination/Date Given: Yes Hx Pneumococcal Vaccination/Date Given: No Travel Risk - International Travel Have you traveled outside of the country in past 3 weeks: No - Emerging Infectious Disease Are you exhibiting symptoms associated with any current EIDs: No - Review of Systems Constitutional: No Symptoms Eyes: No Symptoms Ears, Nose, & Throat: No Symptoms Respiratory: No Symptoms Cardiac: No Symptoms Abdominal/Gastrointestinal: No Symptoms Genitourinary Symptoms: No Symptoms Musculoskeletal: Fall, Injury (Right knee) Skin: No Symptoms Neurological: No Symptoms Psychological: No Symptoms Endocrine: No Symptoms Hematologic/Lymphatic: No Symptoms Immunological/Allergic: No Symptoms All Other Systems: Reviewed and Negative - Past Medical History Pertinent Past Medical History: Yes Neurological History: Migraines ENT History: No Pertinent History Cardiac History: Angina, Arrhythmia, Hypertension Respiratory History: Sleep Apnea Endocrine Medical History: Hypothyroidism Musculoskeletal History: Arthritis, Fibromyalgia GI Medical History: GERD, Irritable Bowel History: No Pertinent History Psycho-Social History: Anxiety, Depression Female Reproductive Disorders: Endometriosis Other Medical History: ADHD, Pt notes extensive surgical history of R knee. 6 scopes, ACL repair. Notes injured R knee at age 14. Right and left knee replaced. [facility]. NEUROGENIC SYNCOPAL EPISODES. A-Fib - Past Surgical History Past Surgical History: Yes Neuro Surgical History: No Pertinent History Cardiac: Cardiac Catheterization Respiratory: No Pertinent History Gastrointestinal: Cholecystectomy Genitourinary: No Pertinent History Musculoskeletal: Joint Replacement, Orthopedic Surgery Female Surgical History: Hysterectomy, Tubal Ligation Other Surgical History: breast reduction, total knee rt, partial knee rt, 8-9 arthroscopies rt knee, ACL repairs x3 rt knee, thyroidectomy. TOTAL LEFT KNEE 03/08/17. port placed 05/2018 - Female History Hx Last Menstrual Period: NA-HYSTERECTOMY 08 - Social History Smoking Status: Current every day smoker How long have you smoked: since 14yo Exposure to second hand smoke: No Drug Use: marijuana Patient Lives Alone: No - Nursing Vital Signs Nursing Vital Signs: Initial Vital Signs Temperature 97.7 F 06/22/24 15:29 Pulse Rate 77 06/22/24 15:29 Respiratory Rate 17 06/22/24 15:29 Blood Pressure 136/88 06/22/24 15:29 O2 Sat by Pulse Oximetry 99 06/22/24 15:29 Pain Scale Pain Intensity 6 - Physical Exam General Appearance: no apparent distress, alert, anxiety Eyes, Ears, Nose, Throat Exam: normal ENT inspection, moist mucous membranes Neck Exam: normal inspection, non-tender, supple, full range of motion Cardiovascular/Respiratory Exam: chest non-tender, no respiratory distress Gastrointestinal/Abdominal Exam: non-tender Back Exam: normal inspection, normal range of motion, No CVA tenderness, No vertebral tenderness Hips Exam: bilateral: non-tender, normal inspection, normal range of motion, no evidence of injury Legs Exam: bilateral leg: non-tender, normal inspection, normal range of motion, no evidence of injury Knees Exam: right knee: soft tissue tenderness, left knee: non-tender, normal inspection, bilateral knee: normal range of motion, no evidence of injury Ankle Exam: bilateral ankle: non-tender, normal inspection, normal range of motion, no evidence of injury Foot Exam: bilateral foot: non-tender, normal inspection, normal range of motion, no evidence of injury Neuro/Tendon Exam: normal sensation, normal motor functions, normal tendon functions, responds to pain, no evidence tendon injury Mental Status Exam: alert, oriented x 3, cooperative Skin Exam: normal color, warm, dry SpO2 Interpretation: normal O2 Delivery: Room Air Ordered Tests: Active Orders 24 hr Category Date Time Status KNEE (3 VIEWS) Stat Exams 06/22/24 15:42 Taken - Progress Progress: unchanged, pain not gone completely Progress Note: 06/22/24 15:59 My medical decision making and the assignment of low complexity to this patient's medical issue today is based on review of the patient's past medical history, review the patient's medication list, reviewed patient drug allergy list, history present illness and physical findings on examination. The workup in this patient includes x-ray of the patient's right knee. Differential diagnosis includes but is not limited to right knee sprain, right knee fracture/dislocation I interpreted the preliminary report of this patient's right knee x-ray. The hardware appears to be intact and in the appropriate position. No acute fracture or dislocation. Counseled pt/family regarding: diagnosis, need for follow-up, rad results Medical Desision Making - Independent Historian Additional History obtained from: Family - Diagnostic Testing Diagnostic test were ordered, analyzed, and reviewed by me: Yes Radiological Interpretation: Interpreted by me, Teleradiologist Report - Risk of complications The pt has a mod risk of morbidity or mortality based on: Need for prescription drug management - Departure Departure Disposition: Home Clinical Impression: Right knee pain Condition: Stable Critical Care Time: No Referrals: ANA GTZ NP [Primary Care Provider] - Follow up/PCP as directed Additional Instructions: Ice pack to the tender area 3 times a day for the next 3 days. Take your medication as prescribed. Call your primary care provider tomorrow, 06/23/2024, to make arranges for follow-up appointment for further evaluation management. Prescriptions: Oxycodone HCl/Acetaminophen [Percocet 5-325 mg Tablet] 1 each PO Q12H PRN PRN #4 tablet MDD 2 PRN Reason: Moderate To Severe Pain
[2024-06-22 15:37] VITALS: BP 136/88; PULSE 77; RESP 17; TEMP 97.7; O2SAT 99
[2024-06-22] MEDS ORDERED: PERCOCET TABLET 5/325MG ONE (16:06)
[2024-06-22] MEDS: PERCOCET TABLET 5/325MG PO STA (16:10)
--- NOTE | 2024-06-22 16:30 | XRAY ---
Indication: Fall injury. Comparison: March 29, 2019 3 view right knee unchanged again demonstrating intact total knee arthroplasty and tiny punctate foreign bodies adjacent to medial tibial plateau. No new/acute bony, articular, or soft tissue abnormalities.
== END 2024-06-22 16:33 | disposition home or self-care (01) ==
LOC: ED 15:19
DX: M25.561 Pain in right knee (principal); I10 Essential (primary) hypertension; Z79.891 Long term (current) use of opiate analgesic; Z72.0 Tobacco use
CPT/HCPCS: 73562; 99283; A9270-GY